=== PATIENT | male | born 1970 | race Caucasian/White ===

== ENCOUNTER 2016-10-25 07:28 | Inpatient (IN) | payer MEDICAID, OTHER ==
--- NOTE | 2016-10-25 07:54 | ED Physician Chart ---
Chief Complaint/HPI - Patient Information Date Seen:: 10/25/16 Time Seen:: 07:50 Chief Complaint:: ABDOMINAL PAIN History of Present Illness:: THIS A 46 YO MALE WHO STATES THAT THIS A M HE HAS A SUDDEN ONSET OF GENERALIZE ABDOMINAL PAIN NOT ASSOCIATED WITH NAUSEA AND VOMITING. HE STATES THAT HE HAS A HISTORY OF RENAL STONES AND GALLSTONES. HE DENIES PREVIOUS ABDOMINAL SURGERY. HE DENIES FEVER, COUGH AND CHEST PAIN. HE DENIES PAINFUL URINATION AND PENILE DISCHARGE. HE DENIES DIARRHEA AND CONSTIPATION. Allergies:: Allergies Allergy/AdvReac Type Severity Reaction Status Date / Time Penicillins [PCN] Allergy Verified 12/08/15 02:21 Vitals:: Vital Signs - 8 hr 10/25/16 07:41 Temp 98.1 F HR 92 RR 17 BP 139/79 O2 Sat % 100 Historian:: Patient Review:: Nurse's Note Reviewed, Old Chart Reviewed Review of Systems - Review of Systems General/Constitutional: No fever, No chills, No weight loss, No weakness, No diaphoresis, No edema, No loss of appetite Skin: No skin lesions, No rash, No bruising Head: No headache, No light-headedness Eyes: No loss of vision, No pain, No diplopia ENT: No earache, No nasal drainage, No sore throat, No tinnitus Neck: No neck pain, No swelling, No thyromegaly, No stiffness, No mass noted Cardio Vascular: No chest pain, No palpitations, No PND, No orthopnea, No edema Pulmonary: No SOB, No cough, No sputum, No wheezing GI: No nausea, No vomiting, No diarrhea, Pain, No melena, No hematochezia, No constipation, No hematemesis G/U: No dysuria, No frequency, No hematuria Musculoskeletal: No bone or joint pain, No back pain, No muscle pain Endocrine: No polyuria, No polydipsia Psychiatric: No prior psych history, No depression, No anxiety, No suicidal ideation Hematopoietic: No bruising, No lymphadenopathy Allergic/Immuno: No urticaria, No angioedema Neurological: No syncope, No focal symptoms, No weakness, No paresthesia, No headache, No seizure, No dizziness, No confusion, No vertigo Past Medical History - Past Medical History Obtainable: Yes Past Medical History: Renal stone Family History: None Social History: Smoker, Alcohol, Illicit Drug Use Surgical History: other (LEFT SHOULDER AND LEFT ANKLE SURGIES) Medication: Reviewed Family Medical History - Family Member Mother History Unknown: Yes Physical Exam - Physical Examination General/Constitutional: Awake, Well-developed, well-nourished, Alert, No distress, GCS 15, Non-toxic appearing, Ambulatory Head: Atraumatic Eyes: Lids, conjuctiva normal, PERRL, EOMI Skin: Nl inspection, No rash, No skin lesions, No ecchymosis, Well hydrated, No lymphadenopathy ENMT: External ears, nose nl, Nasal exam nl, Lips, teeth, gums nl Neck: Nontender, Full ROM w/o pain, No JVD, No nuchal rigidity, No bruit, No mass, No stridor Respiratory: Nl effort/Exclusion, Clear to Auscultation, No Wheeze/Rhonchi/Rales Cardio Vascular: RRR, No murmur, gallop, rubs, NL S1 S2 GI: No organomegaly, No hernia, Normal BS's, No mass/bruits, No McBurney tenderness Other GI comments:: ABDOMINAL TENDERNESS IS MINIMAL AND THERE SOME MILD DISTENTION. : No CVA tenderness Extremities: No tenderness or effusion, Full ROM, normal strength in all extremities, No edema, Normal digits & nails Neuro/Psych: Alert/oriented, DTR's symmetric, Normal sensory exam, Normal motor strength, Judgement/insight normal, Mood normal, Normal gait, No focal deficits Misc: normal gait, Normal back, No paraspinal tenderness Labs/Radiology/EKG Results - Lab Results Results: Abnormal Lab Results 10/25/16 10/25/16 10/25/16 07:30 07:30 08:00 WBC RBC Hgb Hct MCV MCH MCHC Differential RDW Plt Count MPV Neutrophils (Manual) Lymphocytes Monocytes Platelet Estimate Platelet Morphology RBC Morph Micro Appear PT 9.1 L INR 0.89 PTT (Actin FS) 26.8 Sodium Potassium Chloride Carbon Dioxide Anion Gap BUN Creatinine Est GFR ( Amer) Est GFR (Non-Af Amer) BUN/Creatinine Ratio Glucose Hemoglobin A1c % Whole Bld Lactic Acid Calcium Total Bilirubin AST ALT Alkaline Phosphatase Total Protein Albumin Globulin Albumin/Globulin Ratio Triglycerides Cholesterol LDL Cholesterol Direct HDL Cholesterol TSH Urine Source CLEAN C Urine Color YELLOW Urine Clarity SL. CLOUDY Urine pH 6.5 Ur Specific [place] 1.015 Urine Protein NEGATIVE Urine Glucose (UA) 250 H Urine Ketones TRACE Urine Blood NEGATIVE Urine Nitrate NEGATIVE Urine Bilirubin NEGATIVE Urine Urobilinogen 2.0 Ur Leukocyte Esterase NEGATIVE Urine RBC NONE SEEN Urine WBC 0-2 Ur Epithelial Cells RARE Urine Bacteria NONE SEEN Urine Opiates Screen NEGATIVE Urine Methadone Screen NEGATIVE Ur Barbiturates Screen NEGATIVE Ur Tricyclics Screen POSITIVE H Ur Phencyclidine Scrn NEGATIVE Amphetamines Screen NEGATIVE U Methamphetamines Scrn NEGATIVE U Benzodiazepines Scrn POSITIVE H U Cocaine Metab Screen NEGATIVE U Cannabinoids Screen NEGATIVE Ethyl Alcohol 10/25/16 10/25/16 10/25/16 08:00 08:00 08:00 WBC 3.9 L RBC 4.45 Hgb 12.5 L Hct 37.0 L D MCV 83.1 MCH 28.0 MCHC Differential 33.7 RDW 13.5 Plt Count 122 L MPV 8.2 Neutrophils (Manual) 80 Lymphocytes 16 L Monocytes 4 Platelet Estimate DECREASED PLATELETS Platelet Morphology NORMAL RBC Morph Micro Appear NORMAL PT INR PTT (Actin FS) Sodium 133 L Potassium 3.6 Chloride 103 Carbon Dioxide 22.6 Anion Gap 11.0 BUN 23 Creatinine 1.0 Est GFR ( Amer) > 60.0 Est GFR (Non-Af Amer) > 60.0 BUN/Creatinine Ratio 23.0 Glucose 187 H Hemoglobin A1c % Whole Bld Lactic Acid Calcium 9.3 Total Bilirubin 0.7 AST 22 ALT 26 Alkaline Phosphatase 54 Total Protein 7.5 Albumin 4.5 Globulin 3.0 Albumin/Globulin Ratio 1.5 Triglycerides 154 H Cholesterol 159 LDL Cholesterol Direct 122 HDL Cholesterol 33 TSH Urine Source Urine Color Urine Clarity Urine pH Ur Specific [place] Urine Protein Urine Glucose (UA) Urine Ketones Urine Blood Urine Nitrate Urine Bilirubin Urine Urobilinogen Ur Leukocyte Esterase Urine RBC Urine WBC Ur Epithelial Cells Urine Bacteria Urine Opiates Screen Urine Methadone Screen Ur Barbiturates Screen Ur Tricyclics Screen Ur Phencyclidine Scrn Amphetamines Screen U Methamphetamines Scrn U Benzodiazepines Scrn U Cocaine Metab Screen U Cannabinoids Screen Ethyl Alcohol 10/25/16 10/25/16 10/25/16 08:00 08:00 08:00 WBC RBC Hgb Hct MCV MCH MCHC Differential RDW Plt Count MPV Neutrophils (Manual) Lymphocytes Monocytes Platelet Estimate Platelet Morphology RBC Morph Micro Appear PT INR PTT (Actin FS) Sodium Potassium Chloride Carbon Dioxide Anion Gap BUN Creatinine Est GFR ( Amer) Est GFR (Non-Af Amer) BUN/Creatinine Ratio Glucose Hemoglobin A1c % 5.1 Whole Bld Lactic Acid Calcium Total Bilirubin AST ALT Alkaline Phosphatase Total Protein Albumin Globulin Albumin/Globulin Ratio Triglycerides Cholesterol LDL Cholesterol Direct HDL Cholesterol TSH 1.69 Urine Source Urine Color Urine Clarity Urine pH Ur Specific [place] Urine Protein Urine Glucose (UA) Urine Ketones Urine Blood Urine Nitrate Urine Bilirubin Urine Urobilinogen Ur Leukocyte Esterase Urine RBC Urine WBC Ur Epithelial Cells Urine Bacteria Urine Opiates Screen Urine Methadone Screen Ur Barbiturates Screen Ur Tricyclics Screen Ur Phencyclidine Scrn Amphetamines Screen U Methamphetamines Scrn U Benzodiazepines Scrn U Cocaine Metab Screen U Cannabinoids Screen Ethyl Alcohol < 10 10/25/16 08:50 WBC RBC Hgb Hct MCV MCH MCHC Differential RDW Plt Count MPV Neutrophils (Manual) Lymphocytes Monocytes Platelet Estimate Platelet Morphology RBC Morph Micro Appear PT INR PTT (Actin FS) Sodium Potassium Chloride Carbon Dioxide Anion Gap BUN Creatinine Est GFR ( Amer) Est GFR (Non-Af Amer) BUN/Creatinine Ratio Glucose Hemoglobin A1c % Whole Bld Lactic Acid 2.31 H* Calcium Total Bilirubin AST ALT Alkaline Phosphatase Total Protein Albumin Globulin Albumin/Globulin Ratio Triglycerides Cholesterol LDL Cholesterol Direct HDL Cholesterol TSH Urine Source Urine Color Urine Clarity Urine pH Ur Specific [place] Urine Protein Urine Glucose (UA) Urine Ketones Urine Blood Urine Nitrate Urine Bilirubin Urine Urobilinogen Ur Leukocyte Esterase Urine RBC Urine WBC Ur Epithelial Cells Urine Bacteria Urine Opiates Screen Urine Methadone Screen Ur Barbiturates Screen Ur Tricyclics Screen Ur Phencyclidine Scrn Amphetamines Screen U Methamphetamines Scrn U Benzodiazepines Scrn U Cocaine Metab Screen U Cannabinoids Screen Ethyl Alcohol - Radiology Results Results: CHEST X-RAY = NAD CT SCAN OF THE ABDOMEN = DISTENDED GALLBLADDER WITH GALLSTONES. MARKED SPLENOMEGALY DISTENDED STOMACH - EKG Interpretations EKG Time:: 08:07 Rate & Rhythm: 92 NORMAL SINUS [place]: RIGHT AXIS Assessment - Assessment General Assessment: THIS PATIENT HAS GALLBLADDER DISEASE AND A MARKED SPLENOMEGALY WITH A LOW PLATLET COUNT ASSOCIATED WITH SIGNIFICANT PAIN. IT WAS RECOMMENDED THAT HE BE ADMITTED TO THE HOSPITAL FOR A G.I. AND SURGICAL CONSULT TO EVALUATE AND TREAT HIS CONDITION. THE PATIENT REFUSED ADMISSION. THE PATIENT WAS ALSO TOLD THAT HE IS ACIDOTIC AND NEED THAT EVALUATE ALSO. I EXPLAINED THAT HE MIGHT IF HE LEAVES WITHOUT AN INVESTIGATION OF MULTIPLE CONDITIONS. ED Septic Shock - . Is Septic Shock (SBP<90, OR Lactate>4 mmol\L) present?: No - <6hrs of presentation: Vital Signs: Vital Signs - 8 hr 10/25/ 07:41 Temp 98.1 F HR 92 RR 17 BP 139/79 O2 Sat % 100 Reassessment (Disposition) - Reassessment Reassessment Condition:: Improved - Diagnosis Diagnosis:: CHOLELITHIASIS SPLENOMEGALY DISTENDED STOMACH - Aftercare/Follow up Instructions Aftercare/Follow-Up Instructions:: Counseled pt regarding lab results/diagnosis & need follow up, Refer to Discharge Instructions, Counseled pt & family regarding lab results/diagnosis & need follow up - Patient Disposition Discharge/Transfer:: Against Medical Advice (HE COULD NOT BE CONVINCED TO BE HOSPITALIZED) Condition at Disposition:: Improved ED Discharge Plan - Patient Disposition Admit/Discharge/Transfer: AGAINST MEDICAL ADVICE Condition at Disposition: Guarded
[2016-10-25 08:13] LABS: HEMOGLOBIN 12.5 gm/dL (13.2-17.3); MEAN CELL VOLUME 83.1 fl (80-99); MEAN CORPUSCULAR HGB CONC 33.7 pg (28.0-36.0); MEAN PLATELET VOLUME 8.2 fl; PLATELET COUNT 122 Th/cmm (150-400); RED BLOOD COUNT 4.45 Mil/cmm (4.30-5.70); RED CELL DISTRIBUTION WIDTH 13.5 % (11.5-20.0)
[2016-10-25 08:18] LABS: URINE COLOR YELLOW; URINE GLUCOSE (UA) 250 mg/dL (NEGATIVE)
[2016-10-25 08:19] LABS: URINE BILIRUBIN NEGATIVE (NEGATIVE); URINE BLOOD NEGATIVE (NEGATIVE); URINE KETONE TRACE mg/dL (NEGATIVE); URINE PH 6.5; URINE PROTEIN NEGATIVE (NEGATIVE)
[2016-10-25 08:20] LABS: INR 0.89 (0.5-1.4); PROTHROMBIN TIME (TEST) 9.1 SECONDS (9.5-11.5)
[2016-10-25 08:24] LABS: WHITE BLOOD COUNT 3.9 Th/cmm (4.8-10.8)
[2016-10-25 08:25] LABS: ALB/GLOB RATIO 1.5 (1.0-1.8); ALKALINE PHOSPHATASE 54 U/L (34-104); BILIRUBIN,TOTAL 0.7 mg/dL (0.3-1.0); BUN - UREA NITROGEN 23 mg/dL (7-25); CALCIUM SERUM 9.3 mg/dL (8.6-10.3); CARBON DIOXIDE 22.6 mEq/L (21.0-31.0); CHLORIDE 103 mEq/L (98-107); GLUCOSE 187 mg/dL (70-105); POTASSIUM SERUM 3.6 mEq/L (3.5-5.1); SGOT 22 U/L (13-39); SGPT/ALT 26 U/L (7-52); SODIUM SERUM 133 mEq/L (136-145)
[2016-10-25 08:26] LABS: CHOLESTEROL 159 mg/dL (<200); TRIGLYCERIDES 154 mg/dL (<150)
[2016-10-25 08:39] LABS: URINE BACTERIA NONE SEEN /hpf (NONE SEEN); URINE EPITHELIAL CELLS RARE /lpf (FEW); URINE RBC NONE SEEN /hpf (0-5); URINE WBC 0-2 /hpf (0-5)
[2016-10-25 08:43] LABS: AMPHETAMINE URINE NEGATIVE (NEGATIVE); BARBITURATES URINE NEGATIVE (NEGATIVE); METHADONE URINE NEGATIVE (NEGATIVE)
[2016-10-25] MEDS ORDERED: IOHEXOL 300MG/ML 100 ML VIAL IVP ONE (08:43)
[2016-10-25] MEDS ORDERED: Sodium Chloride 0.9% 1,000 ML IV ONE (08:43)
[2016-10-25 09:13] LABS: NEUTROPHILS 80 % (40-80); PLATELET ESTIMATE DECREASED PLATELETS (NORMAL); TOTAL CELLS COUNTED 100
[2016-10-25 09:14] LABS: PLATELET MORPHOLOGY NORMAL (NORMAL)
--- NOTE | 2016-10-25 10:00 | Diagnostic Imaging Report ---
Portable chest x-ray HISTORY: Pain The heart size is difficult to assess with portable technique in a poor inspiration. Elevation of the right hemidiaphragm. No acute focal pulmonary processes. No hilar or mediastinal abnormalities. IMPRESSION: No acute pulmonary processes
--- NOTE | 2016-10-25 10:05 | Diagnostic Imaging Report ---
CT scan abdomen and pelvis with intravenous contrast HISTORY: Pain, abdominal distention Total DLP equals 661 CTDI equals 12.0 Axial sections were obtained from the xiphoid process down to the pubic symphysis. The liver exhibits a homogeneous parenchyma. No focal lesions. There is marked splenomegaly. There is a dilated gallbladder with intraluminal calcifications consistent with cholelithiasis. There is a fluid-filled dilated stomach. No significant bowel dilatation. No focal abnormality seen within the pancreas. No significant focal renal lesions. No hydronephrosis. The exam of the pelvis demonstrates preservation of normal fat planes. No abnormal soft tissue masses or abnormal fluid collections prostatic calcifications noted. IMPRESSION: 1. Dilated gallbladder with evidence of cholelithiasis 2. Marked splenomegaly 3. Distended fluid-filled stomach. Significance should be correlated clinically.
[2016-10-25] MEDS ORDERED: HYDROmorphone 1 mg/mL 1mL Syr IVP STA (10:12)
[2016-10-25] MEDS ORDERED: HYDROmorphone 1 mg/mL 1mL Syr ONE (10:13)
[2016-10-25] MEDS ORDERED: Diatrizoate Meglumine/Diatri 30 mL Sol PO ONE (14:14)
--- NOTE | 2016-10-25 14:53 | Diagnostic Imaging Report ---
Upper GI exam, limited History: Abdominal pain, distended stomach Comparison: CT abdomen and pelvis on 10/25/2016 Technique/procedure: [employer] view demonstrates a nonspecific bowel gas pattern. Excreted contrast from previous exam is seen in the urinary bladder. There is normal transit of contrast from the esophagus to the stomach. No evidence of a hiatal hernia. The gastric rugal folds are within normal limits. There may be gastroesophageal reflux. Limited assessment for focal lesions demonstrate obvious focal mass lesions. There is a new ventral transit of contrast into the small bowel without evidence of obstruction. IMPRESSION: Mildly distended stomach, nonspecific. There is passage of contrast seen from the stomach into the small bowel. No evidence of a hiatal hernia. Questionable Gastroesophageal reflux, please correlate with clinical findings.
[2016-10-25 18:55] VITALS: BP 142/80
--- NOTE | 2016-10-25 21:22 | Consultation ---
DATE OF CONSULTATION: 10/25/2016 INPATIENT GASTROINTESTINAL CONSULTATION REFERRING PHYSICIAN: Dr. Lowery. REASON FOR CONSULTATION: Upper abdominal pain. HISTORY OF PRESENT ILLNESS: This is a 46-year-old male, who developed upper abdominal pain; therefore came to the hospital, had nausea, but no vomiting. Denies having any diarrhea, melena, hematochezia, hematemesis, or coffee-ground emesis. PAST MEDICAL HISTORY: None. PAST SURGICAL HISTORY: Hernia repair. FAMILY HISTORY: Noncontributory. SOCIAL HISTORY: Drinks alcohol, but not heavy, does use methamphetamines. ALLERGIES: PENICILLIN. CURRENT MEDICATIONS: Normal saline. REVIEW OF SYSTEMS: A 10-point review of systems was performed and the pertinent positive was abdominal pain. All other systems were otherwise negative. PHYSICAL EXAMINATION: VITAL SIGNS: Temperature 98, breathing 16, pulse of 102, blood pressure 120/87, satting 99%. GENERAL: In no apparent distress. EYES: Anicteric, normal conjunctivae. HEENT: Normocephalic, atraumatic. Moist mucous membranes. NECK: Soft, supple. CHEST: Clear. effort. CARDIOVASCULAR: Regular rate and rhythm. ABDOMEN: Soft, nontender, nondistended, normal bowel sounds. SKIN: Warm, dry. EXTREMITIES: Reveal no cyanosis. PSYCHOLOGIC: Alert and oriented x 3. LABORATORY DATA: Show white count 3.9, hemoglobin 12.5, platelets of 122. INR is 0.89, total bilirubin 0.7, AST 22, ALT 26, alkaline phosphatase 54. Alcohol level was negative. CT abdomen and pelvis showed gallstones and a distended stomach. IMPRESSION: A 46-year-old male with gallstones, abdominal pain, cause could be symptomatic gallstone and may have cholecystitis. HIDA scan can be done. LFTs are normal. Endoscopy can also be done for the distended stomach. This was offered to the patient, but he declined. He wanted an alternative, which would be an upper GI series. PLAN: 1. Check an upper GI series. 2. Check a lipase level. 3. Check a HIDA scan. Thank you for allowing me to participate. Please call me if any questions. JOB# [id number]
--- NOTE | 2016-10-25 23:47 | Admit Criteria Form ---
Admit Criteria Forms - Admit Criteria Diagnosis: ABDOMINAL PAIN Clinical Indications for Admission to Inpatient Care (Place 'X' for any and all applicable criteria): Admission is indicated for ANY ONE of the following(1)(2)(3)(4)(5): [X ]I. Inpatient admission required rather than observation care (Also use Abdominal Pain: Observation Care, as appropriate) because of ANY ONE of the following: [ ]a) Severe pain requiring acute inpatient management [X ]b) Identification of etiology/finding that requires inpatient care (eg, aortic dissection, free air) [ ]c) Absent bowel sounds with complete ileus(6) [ ]d) Suspected toxic megacolon [ ]e) Severe electrolyte abnormalities requiring inpatient care [ ]f) High fever or infection requiring inpatient admission as indicated by ANY ONE of following(7)(8): [ ] i) Appropriate outpatient or observational care antimicrobial treatment unavailable, not effective, or not feasible [ ] ii) Documented bacteremia [ ] iii) Temperature > 104.9 degrees F (oral) [ ] iv) T >103.1 F (oral) or < 96.8 F(rectal) that does not respond to all emergency treatment measures [ ]g) Signs of intestinal obstruction [B] [ ]h) Hemodynamic instability [ ]i) IV fluid to replace significant ongoing losses (greater than 3 L/m2 per day) (12)(13) [ ]j) Percutaneous or open drainage (eg, abscess, biliary tract ) procedures [ ]k) Parenteral nutrition regimen that must be implemented on inpatient basis [X ]l) Other condition,treatment or monitoring requiring inpatient admission. [ ]II. Peritoneal signs present [ ]III. Surgery needed that cannot be performed on an ambulatory basis. [ ]IV. Evaluation requires patient to not eat or drink for extended period ( eg, more than 24 hours). [ ]V. Contraindications and/or Inappropriate clinical situations for Observational Care in patients with abdominal pain, when ANY ONE of the following is required: [ ]a) Thorough evaluation is required to prevent catastrophic events due to delays in diagnosing (e.g.Mesenteric ischemia) 1,3 [ ]b) Patient with severe pathology or with chronic symptoms unlikely to improve in the ED stay (3) [ ]. General contraindications and/or Inappropriate clinical situations for Observational Care in patients with abdominal pain, when ANY ONE of the following is required: [ ]a) Prediction of prolongation of LOS based on ANY ONE of the following may be considered as a contraindication for observational care 2, 3, 4, 5, 6, 7, 8, 9, 10, 11 [ ]i) Age > 65 yrs. [ ]ii) Patient arriving by ambulance [ ]iii) Patient with high acuity [ ]iv) Patient requiring vital sign monitoring [ ]v) Patient on IV medication [ ]b) Systolic blood pressures 180mmHg 3,12 [ ]c) Patient with altered mental status including delirium and other alteration of consciousness, (3) [ ]d) Patient whose discharge disposition will be to a usp home or rehabilitation home should not be managed in Emergency Department Observation Unit. CMS rule requires 3 days hospital stay before such placement.3,13 [ ]e) Patient with failure to thrive due to broad array of etiologies 3,16,17 [ ]f) Inability to ambulate 3,14 Extended stay beyond goal length of stay may be needed for(2)(3): [ ]a) Persistent abdominal pain with suspected intra-abdominal process [ ]b) Diagnosed condition requiring continued stay (e.g., pancreatitis, complicated diverticulitis) [ ]c) Surgery (e.g., colectomy) The original [employer] content created by [employer] has been revised. The portions of the content which have been revised are identified through the use of italic text or in bold, and [facility] has neither reviewed nor approved the modified material.All other unmodified content is copyright [facility]. Please see references footnoted in the original [facility] edition 2016 Admit Criteria Met?: Yes
--- NOTE | 2016-10-26 07:49 | History and Physical ---
History of Present Illness - HPI Chief Complaint: 46 y/o male who presents to [facility] ER with RUQ abdominal pain. Denies any nausea or vomiting. States that he had decrease appetite. He denies any previous abdominal surgery. admits to a history of renal stones and gallstones. Denies fever, cough, congestion and chest pain. Denies dysuria or penile discharge. denies diarrhea and constipation. While in the ER patient CT abd/pelvis. Please see dictated report. HPI: 46 y/o male who presents to [facility] ER with RUQ abdominal pain. Denies any nausea or vomiting. States that he had decrease appetite. He denies any previous abdominal surgery. admits to a history of renal stones and gallstones. Denies fever, cough, congestion and chest pain. Denies dysuria or penile discharge. denies diarrhea and constipation. While in the ER patient CT abd/pelvis. Please see dictated report. 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 Denies: Constipation, GERD Psych: Report: No Pertinent Hx Musculoskeletal: Report: No Pertinent Hx Rheumatologic: Report: No pertinent Hx Infectious Disease: Report: No Pertinent Hx Renal/: Report: Other (history of renal stones). Denies: UTI, Urinary Incontinence, Hematuria Endocrine: Report: No Pertinent Hx Dermatology: Report: No Pertinent Hx - Past Surgical History Past Surgical History: No pertinent Hx Family Medical History - Family Member Mother History Unknown: Yes Social History Smoke: No Alcohol: None Drugs: Crystal Meth Lives: Alone - Medications Home Medications: Home Medication Medication Instructions Recorded Type QUEtiapine Fumarate [SEROquel] 400 mg PO DAILY 10/25/16 History alprazOLAM [Xanax*] 0.5 mg PO DAILY 10/25/16 History - Allergies Allergies/Adverse Reactions: Allergies Allergy/AdvReac Type Severity Reaction Status Date / Time Penicillins [PCN] Allergy Verified 12/08/15 02:21 Review of Systems - Review of Systems Constitutional: Report: No Significant Eyes: Report: No Significant ENT: Report: No Significant Respiratory: Denies: Cough, SOB with Excertion, Wheezing Cardiovascular: Denies: Chest Pain Gastrointestinal: Report: Abdominal Pain. Denies: Nausea, Vomiting, Diarrhea, Constipation Genitourinary: Denies: Dysuria, Incontinence, Hematuria Musculoskeletal: Report: No Significant Skin: Report: No Significant Neurological: Report: No Significant Physical Exam - Physical Exam HEENT: Report: Ears Nose Throat within normal limits, Pharnyx within normal limits Neck: Report: Within normal limits Cardiovascular Systems: Report: Regular, Rate and Rhythm Respiratory: Report: Breath Sounds are within normal limits, Clear to Auscultation of lung olivera Abdomen: Report: Tender to palpation Back: Report: Inspection of back is within normal limits. Extremities: Report: Non-tender to palpation. Skin: Report: Color of skin is within normal limits Neuro/Psych: Report: Mood affect is within normal limits, A+Ox3 - Lab Results All Lab Results last 24 hours: Laboratory Last Values WBC 3.9 Th/cmm (4.8-10.8) L 10/25/16 08:00 RBC 4.45 Mil/cmm (4.30-5.70) 10/25/16 08:00 Hgb 12.5 gm/dL (13.2-17.3) L 10/25/16 08:00 Hct 37.0 % (39.0-49.0) L D 10/25/16 08:00 MCV 83.1 fl (80-99) 10/25/16 08:00 MCH 28.0 pg (26.0-30.0) 10/25/16 08:00 MCHC Differential 33.7 pg (28.0-36.0) 10/25/16 08:00 RDW 13.5 % (11.5-20.0) 10/25/16 08:00 Plt Count 122 Th/cmm (150-400) L 10/25/16 08:00 MPV 8.2 fl 10/25/16 08:00 Neutrophils (Manual) 80 % (40-80) 10/25/16 08:00 Lymphocytes 16 % (20-50) L 10/25/16 08:00 Monocytes 4 % (2-10) 10/25/16 08:00 Platelet Estimate DECREASED PLATELETS (NORMAL) 10/25/16 08:00 Platelet Morphology NORMAL (NORMAL) 10/25/16 08:00 RBC Morph Micro Appear NORMAL (NORMAL) 10/25/16 08:00 PT 9.1 SECONDS (9.5-11.5) L 10/25/16 08:00 INR 0.89 (0.5-1.4) 10/25/16 08:00 PTT (Actin FS) 26.8 SECONDS (26.0-38.0) 10/25/16 08:00 Sodium 133 mEq/L (136-145) L 10/25/16 08:00 Potassium 3.6 mEq/L (3.5-5.1) 10/25/16 08:00 Chloride 103 mEq/L (98-107) 10/25/16 08:00 Carbon Dioxide 22.6 mEq/L (21.0-31.0) 10/25/16 08:00 Anion Gap 11.0 (7.0-16.0) 10/25/16 08:00 BUN 23 mg/dL (7-25) 10/25/16 08:00 Creatinine 1.0 mg/dL (0.7-1.3) 10/25/16 08:00 Est GFR ( Amer) > 60.0 ml/min (>90) 10/25/16 08:00 Est GFR (Non-Af Amer) > 60.0 ml/min 10/25/16 08:00 BUN/Creatinine Ratio 23.0 10/25/16 08:00 Glucose 187 mg/dL (70-105) H 10/25/16 08:00 Hemoglobin A1c % 5.1 % (4.0-6.0) 10/25/16 08:00 Whole Bld Lactic Acid 1.79 mmol/L (0.60-1.99) 10/25/16 11:52 Calcium 9.3 mg/dL (8.6-10.3) 10/25/16 08:00 Total Bilirubin 0.7 mg/dL (0.3-1.0) 10/25/16 08:00 AST 22 U/L (13-39) 10/25/16 08:00 ALT 26 U/L (7-52) 10/25/16 08:00 Alkaline Phosphatase 54 U/L (34-104) 10/25/16 08:00 Total Protein 7.5 gm/dL (6.0-8.3) 10/25/16 08:00 Albumin 4.5 gm/dL (4.2-5.5) 10/25/16 08:00 Globulin 3.0 gm/dL 10/25/16 08:00 Albumin/Globulin Ratio 1.5 (1.0-1.8) 10/25/16 08:00 Triglycerides 154 mg/dL (<150) H 10/25/16 08:00 Cholesterol 159 mg/dL (<200) 10/25/16 08:00 LDL Cholesterol Direct 122 mg/dL (75-193) 10/25/16 08:00 HDL Cholesterol 33 mg/dL (23-92) 10/25/16 08:00 Lipase 17 U/L (11-82) 10/25/16 08:00 TSH 1.69 uIU/ml (0.34-5.60) 10/25/16 08:00 Urine Source CLEAN C 10/25/16 07:30 Urine Color YELLOW 10/25/16 07:30 Urine Clarity SL. CLOUDY (CLEAR) 10/25/16 07:30 Urine pH 6.5 10/25/16 07:30 Ur Specific [place] 1.015 (1.005-1.030) 10/25/16 07:30 Urine Protein NEGATIVE mg/dL (NEGATIVE) 10/25/16 07:30 Urine Glucose (UA) 250 mg/dL (NEGATIVE) H 10/25/16 07:30 Urine Ketones TRACE mg/dL (NEGATIVE) 10/25/16 07:30 Urine Blood NEGATIVE (NEGATIVE) 10/25/16 07:30 Urine Nitrate NEGATIVE (NEGATIVE) 10/25/16 07:30 Urine Bilirubin NEGATIVE (NEGATIVE) 10/25/16 07:30 Urine Urobilinogen 2.0 E.U./dL (0.2 - 1.0) 10/25/16 07:30 Ur Leukocyte Esterase NEGATIVE (NEGATIVE) 10/25/16 07:30 Urine RBC NONE SEEN /hpf (0-5) 10/25/16 07:30 Urine WBC 0-2 /hpf (0-5) 10/25/16 07:30 Ur Epithelial Cells RARE /lpf (FEW) 10/25/16 07:30 Urine Bacteria NONE SEEN /hpf (NONE SEEN) 10/25/16 07:30 Urine Opiates Screen NEGATIVE (NEGATIVE) 10/25/16 07:30 Urine Methadone Screen NEGATIVE (NEGATIVE) 10/25/16 07:30 Ur Barbiturates Screen NEGATIVE (NEGATIVE) 10/25/16 07:30 Ur Tricyclics Screen POSITIVE (NEGATIVE) H 10/25/16 07:30 Ur Phencyclidine Scrn NEGATIVE (NEGATIVE) 10/25/16 07:30 Amphetamines Screen NEGATIVE (NEGATIVE) 10/25/16 07:30 U Methamphetamines Scrn NEGATIVE (NEGATIVE) 10/25/16 07:30 U Benzodiazepines Scrn POSITIVE (NEGATIVE) H 10/25/16 07:30 U Cocaine Metab Screen NEGATIVE (NEGATIVE) 10/25/16 07:30 U Cannabinoids Screen NEGATIVE (NEGATIVE) 10/25/16 07:30 Ethyl Alcohol < 10 mg/dL (0-10) 10/25/16 08:00 RPR NONREACTIVE (NONREACTIVE) 10/25/16 08:00 - Assessment Assessment: Current Active Problems Problem Status Onset GENERALIZED ABDOMINAL PAIN Acute RUQ abdominal pain cholelithiasis distended spleen low platelets history of IV drug use splenomegaly - Plan Plan: Will keep patient NPO, continue IV fluids, for HIDA scan today, GI consult.
--- NOTE | 2016-10-26 10:57 | Diagnostic Imaging Report ---
Radionuclide biliary scan for this HIDA scan) HISTORY: Cholelithiasis, pain 5.0 mCi technetium labeled biliary age and was using the exam. There is normal hepatic uptake and clearance. There is excretion of nuclide in the common bile duct and small bowel. No gallbladder activity seen through 2 hours. IMPRESSION: 1. Nonvisualization of the gallbladder. Findings consistent with cystic duct obstruction. Clinical correlation needed.
[2016-10-26] MEDS: Levofloxacin 500mg/100mL 500 MG/100 ML BAG IV SCH (17:36)
--- NOTE | 2016-10-26 18:45 | General Progress Note ---
Subjective - Review of Systems Service Date: 10/26/16 Events since last encounter: known GB stones for 3 years HiDA - nonvisualization CT gb stones, MARKED SPLENOMEGALY ADMITS TO AMPHETAMINES, DENIES ALCOHOL PE non tender RUQ, large umbilical hernia suggest: Hematology eval for splenomegaly Objective - Results Result Diagrams: 10/25/16 08:00 10/25/16 08:00 Recent Labs: Laboratory Last Values WBC 3.9 Th/cmm (4.8-10.8) L 10/25/16 08:00 RBC 4.45 Mil/cmm (4.30-5.70) 10/25/16 08:00 Hgb 12.5 gm/dL (13.2-17.3) L 10/25/16 08:00 Hct 37.0 % (39.0-49.0) L D 10/25/16 08:00 MCV 83.1 fl (80-99) 10/25/16 08:00 MCH 28.0 pg (26.0-30.0) 10/25/16 08:00 MCHC Differential 33.7 pg (28.0-36.0) 10/25/16 08:00 RDW 13.5 % (11.5-20.0) 10/25/16 08:00 Plt Count 122 Th/cmm (150-400) L 10/25/16 08:00 MPV 8.2 fl 10/25/16 08:00 Neutrophils (Manual) 80 % (40-80) 10/25/16 08:00 Lymphocytes 16 % (20-50) L 10/25/16 08:00 Monocytes 4 % (2-10) 10/25/16 08:00 Platelet Estimate DECREASED PLATELETS (NORMAL) 10/25/16 08:00 Platelet Morphology NORMAL (NORMAL) 10/25/16 08:00 RBC Morph Micro Appear NORMAL (NORMAL) 10/25/16 08:00 PT 9.1 SECONDS (9.5-11.5) L 10/25/16 08:00 INR 0.89 (0.5-1.4) 10/25/16 08:00 PTT (Actin FS) 26.8 SECONDS (26.0-38.0) 10/25/16 08:00 Sodium 133 mEq/L (136-145) L 10/25/16 08:00 Potassium 3.6 mEq/L (3.5-5.1) 10/25/16 08:00 Chloride 103 mEq/L (98-107) 10/25/16 08:00 Carbon Dioxide 22.6 mEq/L (21.0-31.0) 10/25/16 08:00 Anion Gap 11.0 (7.0-16.0) 10/25/16 08:00 BUN 23 mg/dL (7-25) 10/25/16 08:00 Creatinine 1.0 mg/dL (0.7-1.3) 10/25/16 08:00 Est GFR ( Amer) > 60.0 ml/min (>90) 10/25/16 08:00 Est GFR (Non-Af Amer) > 60.0 ml/min 10/25/16 08:00 BUN/Creatinine Ratio 23.0 10/25/16 08:00 Glucose 187 mg/dL (70-105) H 10/25/16 08:00 Hemoglobin A1c % 5.1 % (4.0-6.0) 10/25/16 08:00 Whole Bld Lactic Acid 1.79 mmol/L (0.60-1.99) 10/25/16 11:52 Calcium 9.3 mg/dL (8.6-10.3) 10/25/16 08:00 Total Bilirubin 0.7 mg/dL (0.3-1.0) 10/25/16 08:00 AST 22 U/L (13-39) 10/25/16 08:00 ALT 26 U/L (7-52) 10/25/16 08:00 Alkaline Phosphatase 54 U/L (34-104) 10/25/16 08:00 Total Protein 7.5 gm/dL (6.0-8.3) 10/25/16 08:00 Albumin 4.5 gm/dL (4.2-5.5) 10/25/16 08:00 Globulin 3.0 gm/dL 10/25/16 08:00 Albumin/Globulin Ratio 1.5 (1.0-1.8) 10/25/16 08:00 Triglycerides 154 mg/dL (<150) H 10/25/16 08:00 Cholesterol 159 mg/dL (<200) 10/25/16 08:00 LDL Cholesterol Direct 122 mg/dL (75-193) 10/25/16 08:00 HDL Cholesterol 33 mg/dL (23-92) 10/25/16 08:00 Lipase 17 U/L (11-82) 10/25/16 08:00 TSH 1.69 uIU/ml (0.34-5.60) 10/25/16 08:00 Urine Source CLEAN C 10/25/16 07:30 Urine Color YELLOW 10/25/16 07:30 Urine Clarity SL. CLOUDY (CLEAR) 10/25/16 07:30 Urine pH 6.5 10/25/16 07:30 Ur Specific [place] 1.015 (1.005-1.030) 10/25/16 07:30 Urine Protein NEGATIVE mg/dL (NEGATIVE) 10/25/16 07:30 Urine Glucose (UA) 250 mg/dL (NEGATIVE) H 10/25/16 07:30 Urine Ketones TRACE mg/dL (NEGATIVE) 10/25/16 07:30 Urine Blood NEGATIVE (NEGATIVE) 10/25/16 07:30 Urine Nitrate NEGATIVE (NEGATIVE) 10/25/16 07:30 Urine Bilirubin NEGATIVE (NEGATIVE) 10/25/16 07:30 Urine Urobilinogen 2.0 E.U./dL (0.2 - 1.0) 10/25/16 07:30 Ur Leukocyte Esterase NEGATIVE (NEGATIVE) 10/25/16 07:30 Urine RBC NONE SEEN /hpf (0-5) 10/25/16 07:30 Urine WBC 0-2 /hpf (0-5) 10/25/16 07:30 Ur Epithelial Cells RARE /lpf (FEW) 10/25/16 07:30 Urine Bacteria NONE SEEN /hpf (NONE SEEN) 10/25/16 07:30 Urine Opiates Screen NEGATIVE (NEGATIVE) 10/25/16 07:30 Urine Methadone Screen NEGATIVE (NEGATIVE) 10/25/16 07:30 Ur Barbiturates Screen NEGATIVE (NEGATIVE) 10/25/16 07:30 Ur Tricyclics Screen POSITIVE (NEGATIVE) H 10/25/16 07:30 Ur Phencyclidine Scrn NEGATIVE (NEGATIVE) 10/25/16 07:30 Amphetamines Screen NEGATIVE (NEGATIVE) 10/25/16 07:30 U Methamphetamines Scrn NEGATIVE (NEGATIVE) 10/25/16 07:30 U Benzodiazepines Scrn POSITIVE (NEGATIVE) H 10/25/16 07:30 U Cocaine Metab Screen NEGATIVE (NEGATIVE) 10/25/16 07:30 U Cannabinoids Screen NEGATIVE (NEGATIVE) 10/25/16 07:30 Ethyl Alcohol < 10 mg/dL (0-10) 10/25/16 08:00 RPR NONREACTIVE (NONREACTIVE) 10/25/16 08:00 - Physical Exam Vitals and I&O: Vital Signs Temp 100.4 F 10/26/16 12:00 Pulse 98 10/26/16 12:00 Resp 18 10/26/16 12:00 BP 111/74 10/26/16 12:00 Pulse Ox 95 10/26/16 04:00 Intake & Output 10/25/16 10/26/16 10/26/16 18:59 06:59 18:59 Output Total 300 500 Balance -300 -500 Weight (lbs) 102.058 kg 106.8 kg 102.648 kg Output: Urine 300 500 Other: # Bowel Movements 1 Active Medications: Current Medications Alprazolam (Xanax) 0.5 mg PO DAILY SEEMA PRN Reason: Protocol Stop: 12/25/16 08:59 Levofloxacin (Levaquin Pb) 500 mg in 100 mls @ 100 mls/hr IV Q24HR SEEMA Stop: 12/25/16 16:59 Last Admin: 10/26/16 17:36 Dose: 100 mls/hr Metronidazole (Flagyl) 500 mg in 100 mls @ 100 mls/hr IV Q8HR SEEMA Stop: 12/25/16 20:59 Quetiapine Fumarate (Seroquel) 400 mg PO DAILY SEEMA PRN Reason: Protocol Stop: 12/25/16 08:59 Assessment/Plan - Problem List Patient Problems: All Active Problems GENERALIZED ABDOMINAL PAIN (Acute) Nutritional Asmnt/Malnutr-PDOC - Dietary Evaluation Malnutrition Findings (Please click <Entered> for more info): Nutritional Asmnt/Malnutrition Start: 10/26/16 14: 31 Text: Status: Complete Freq: Document 10/26/16 14:31 GSUN (Rec: 10/26/16 14:41 GSUN [email or web address]) Nutritional Asmnt/Malnutrition Patient General Information Nutritional Screening Consult Diagnosis RUQ abdominal pain, cholelithiasis, distended speen Pertinent Medical Hx/Surgical Hx RUQ abdominal pain, hx IV drug use Subjective Information [address] consult for BG >180, no hx of DM noted . 10/26 HIDA scan: cystic duct obstruction. Pt seen sitting in chair next to bed, ambulates, pleasant. Pt stated he is no longer in pain, wound like to be discharged, hungry. Pt has been NPO since adm. Pt stated usually very good appetite, denied nutritional concerns. CBW 226. 3lb with pt off and bedscale properly calibrated. Pt appears nourished and overweight. Current Diet Order/ Nutrition Support NPO Pertinent Medications Flagyl, Seroquel Pertinent Labs 10/25: glucose 187H on adm, A1c 5.1, triglycerides 154H Nutritional Hx/Data Height 1.75 m Height (Calculated Centimeters) 175.3 Current Weight (lbs) 102.648 kg Weight (Calculated Kilograms) 102.6 Weight (Calculated Grams) 962106.0 Christine Body Weight 160 Weight Status Obese GI Symptoms Food Allergies No Skin Integrity/Comment: Jose Eduardo Segura. 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 Estimated Nutritional Goals BEE in Kcals: Adj wt of IBW Calories/Kcals/Kg AdjBW 176.6lb/80.2kg Kcals Calculated 2004-2408kcal (25-30kcal/kg) Protein: Adj wt of IBW Protein Calculated 64-80g (0.8-1g/kg) Fluid: ml 2004-2408ml (1ml/kcal) Nutritional Problem 1. Problem Problem Inadequate oral food beverage intake related to Etiology GI function, HIDA scan: cystic duct obstruction aeb Signs/Symptoms: NPO since adm Intervention/Recommendation Comments 1. When medically feasible to resume oral diet, recommend regular diet. Expected Outcomes/Goals Expected Outcomes/Goals 1. PO intake to meet at least 75% of estimated nutritional needs.
[2016-10-26] MEDS: metroNIDAZOLE 500mg/NS 100mL 500 MG/100 ML BAG IV SCH (21:10)
--- NOTE | 2016-10-27 04:44 | Consultation ---
DATE OF CONSULTATION: 10/25/2016 REFERRING PHYSICIAN: Dr. Lowery. REASON FOR CONSULTATION: Gallstones. Thank you for referring this patient to me. HISTORY OF PRESENT ILLNESS: This is a 46-year-old male with a long history of known gallstones. This was first diagnosed about 3 years ago. He had also been diagnosed with kidney stones and this he passed spontaneously. He has visited this facility a few times in the past with the same complaint. On this admission, the CT scan showed multiple gallstones and marked splenomegaly. There is no mention of cirrhosis of the liver. This likely can be seen best on ultrasound. The patient had a HIDA scan which showed nonvisualization of the gallbladder. He admits to methamphetamine intake. Denies any hard drugs and denies any history of alcohol intake that might cause cirrhosis of the liver. PHYSICAL EXAMINATION: Unremarkable for pain and tenderness except for an umbilical hernia which is nontender. RECOMMENDATIONS: In view of the unexplained splenomegaly and likely cirrhosis of the liver, we will obtain hematology evaluation. The patient will likely need laparoscopic cholecystectomy, but in view of the splenomegaly, complications of bleeding on insufflation with CO2 is a possibility and therefore will need clearance from hematology prior to any surgery. JOB# [id number]
[2016-10-27] MEDS: metroNIDAZOLE 500mg/NS 100mL 500 MG/100 ML BAG IV SCH ×3 (05:13→20:48)
--- NOTE | 2016-10-27 08:02 | General Progress Note ---
Subjective - Review of Systems Service Date: 10/27/16 Subjective: Patient resting comfortable in bed. Patient to be evaluated for splenomegaly by Hem/Onc. Patient for cardiac clearance with cardiology. Patient denies any nausea or vomiting or abdominal pain. currently on clear liquid diet and IV antibiotic therapy. Objective - Results Result Diagrams: 10/25/16 08:00 10/25/16 08:00 Recent Labs: Laboratory Last Values WBC 3.9 Th/cmm (4.8-10.8) L 10/25/16 08:00 RBC 4.45 Mil/cmm (4.30-5.70) 10/25/16 08:00 Hgb 12.5 gm/dL (13.2-17.3) L 10/25/16 08:00 Hct 37.0 % (39.0-49.0) L D 10/25/16 08:00 MCV 83.1 fl (80-99) 10/25/16 08:00 MCH 28.0 pg (26.0-30.0) 10/25/16 08:00 MCHC Differential 33.7 pg (28.0-36.0) 10/25/16 08:00 RDW 13.5 % (11.5-20.0) 10/25/16 08:00 Plt Count 122 Th/cmm (150-400) L 10/25/16 08:00 MPV 8.2 fl 10/25/16 08:00 Neutrophils (Manual) 80 % (40-80) 10/25/16 08:00 Lymphocytes 16 % (20-50) L 10/25/16 08:00 Monocytes 4 % (2-10) 10/25/16 08:00 Platelet Estimate DECREASED PLATELETS (NORMAL) 10/25/16 08:00 Platelet Morphology NORMAL (NORMAL) 10/25/16 08:00 RBC Morph Micro Appear NORMAL (NORMAL) 10/25/16 08:00 PT 9.1 SECONDS (9.5-11.5) L 10/25/16 08:00 INR 0.89 (0.5-1.4) 10/25/16 08:00 PTT (Actin FS) 26.8 SECONDS (26.0-38.0) 10/25/16 08:00 Sodium 133 mEq/L (136-145) L 10/25/16 08:00 Potassium 3.6 mEq/L (3.5-5.1) 10/25/16 08:00 Chloride 103 mEq/L (98-107) 10/25/16 08:00 Carbon Dioxide 22.6 mEq/L (21.0-31.0) 10/25/16 08:00 Anion Gap 11.0 (7.0-16.0) 10/25/16 08:00 BUN 23 mg/dL (7-25) 10/25/16 08:00 Creatinine 1.0 mg/dL (0.7-1.3) 10/25/16 08:00 Est GFR ( Amer) > 60.0 ml/min (>90) 10/25/16 08:00 Est GFR (Non-Af Amer) > 60.0 ml/min 10/25/16 08:00 BUN/Creatinine Ratio 23.0 10/25/16 08:00 Glucose 187 mg/dL (70-105) H 10/25/16 08:00 Hemoglobin A1c % 5.1 % (4.0-6.0) 10/25/16 08:00 Whole Bld Lactic Acid 1.79 mmol/L (0.60-1.99) 10/25/16 11:52 Calcium 9.3 mg/dL (8.6-10.3) 10/25/16 08:00 Total Bilirubin 0.7 mg/dL (0.3-1.0) 10/25/16 08:00 AST 22 U/L (13-39) 10/25/16 08:00 ALT 26 U/L (7-52) 10/25/16 08:00 Alkaline Phosphatase 54 U/L (34-104) 10/25/16 08:00 Total Protein 7.5 gm/dL (6.0-8.3) 10/25/16 08:00 Albumin 4.5 gm/dL (4.2-5.5) 10/25/16 08:00 Globulin 3.0 gm/dL 10/25/16 08:00 Albumin/Globulin Ratio 1.5 (1.0-1.8) 10/25/16 08:00 Triglycerides 154 mg/dL (<150) H 10/25/16 08:00 Cholesterol 159 mg/dL (<200) 10/25/16 08:00 LDL Cholesterol Direct 122 mg/dL (75-193) 10/25/16 08:00 HDL Cholesterol 33 mg/dL (23-92) 10/25/16 08:00 Lipase 17 U/L (11-82) 10/25/16 08:00 TSH 1.69 uIU/ml (0.34-5.60) 10/25/16 08:00 Urine Source CLEAN C 10/25/16 07:30 Urine Color YELLOW 10/25/16 07:30 Urine Clarity SL. CLOUDY (CLEAR) 10/25/16 07:30 Urine pH 6.5 10/25/16 07:30 Ur Specific [place] 1.015 (1.005-1.030) 10/25/16 07:30 Urine Protein NEGATIVE mg/dL (NEGATIVE) 10/25/16 07:30 Urine Glucose (UA) 250 mg/dL (NEGATIVE) H 10/25/16 07:30 Urine Ketones TRACE mg/dL (NEGATIVE) 10/25/16 07:30 Urine Blood NEGATIVE (NEGATIVE) 10/25/16 07:30 Urine Nitrate NEGATIVE (NEGATIVE) 10/25/16 07:30 Urine Bilirubin NEGATIVE (NEGATIVE) 10/25/16 07:30 Urine Urobilinogen 2.0 E.U./dL (0.2 - 1.0) 10/25/16 07:30 Ur Leukocyte Esterase NEGATIVE (NEGATIVE) 10/25/16 07:30 Urine RBC NONE SEEN /hpf (0-5) 10/25/16 07:30 Urine WBC 0-2 /hpf (0-5) 10/25/16 07:30 Ur Epithelial Cells RARE /lpf (FEW) 10/25/16 07:30 Urine Bacteria NONE SEEN /hpf (NONE SEEN) 10/25/16 07:30 Urine Opiates Screen NEGATIVE (NEGATIVE) 10/25/16 07:30 Urine Methadone Screen NEGATIVE (NEGATIVE) 10/25/16 07:30 Ur Barbiturates Screen NEGATIVE (NEGATIVE) 10/25/16 07:30 Ur Tricyclics Screen POSITIVE (NEGATIVE) H 10/25/16 07:30 Ur Phencyclidine Scrn NEGATIVE (NEGATIVE) 10/25/16 07:30 Amphetamines Screen NEGATIVE (NEGATIVE) 10/25/16 07:30 U Methamphetamines Scrn NEGATIVE (NEGATIVE) 10/25/16 07:30 U Benzodiazepines Scrn POSITIVE (NEGATIVE) H 10/25/16 07:30 U Cocaine Metab Screen NEGATIVE (NEGATIVE) 10/25/16 07:30 U Cannabinoids Screen NEGATIVE (NEGATIVE) 10/25/16 07:30 Ethyl Alcohol < 10 mg/dL (0-10) 10/25/16 08:00 RPR NONREACTIVE (NONREACTIVE) 10/25/16 08:00 - Physical Exam Vitals and I&O: Vital Signs Temp 98.0 F 10/27/16 04:00 Pulse 93 10/27/16 04:00 Resp 20 10/27/16 04:00 BP 108/71 10/27/16 04:00 Pulse Ox 100 10/27/16 04:00 Intake & Output 10/26/16 10/27/16 10/27/16 18:59 06:59 18:59 Intake Total 100 500 Balance 100 500 Weight (lbs) 102.648 kg 102.512 kg 103.136 kg Intake: Intake, IV Amount 100 metroNIDAZOLE 500mg/NS 100 100mL 500 mg In 100 ml @ 100 mls/hr IV Q8HR [facility] Rx #:[id number] Oral 500 Other: # Voids 4 # Bowel Movements 0 Active Medications: Current Medications Alprazolam (Xanax) 0.5 mg PO DAILY [facility] PRN Reason: Protocol Stop: 12/25/16 08:59 Levofloxacin (Levaquin Pb) 500 mg in 100 mls @ 100 mls/hr IV Q24HR [facility] Stop: 12/25/16 16:59 Last Admin: 10/26/16 17:36 Dose: 100 mls/hr Metronidazole (Flagyl) 500 mg in 100 mls @ 100 mls/hr IV Q8HR [facility] Stop: 12/25/16 20:59 Last Admin: 10/27/16 05:13 Dose: 100 mls/hr Quetiapine Fumarate (Seroquel) 400 mg PO DAILY [facility] PRN Reason: Protocol Stop: 12/25/16 08:59 General: Alert, Oriented x3, Cooperative, No acute distress HEENT: Atraumatic, PERRLA, EOMI Neck: Supple Cardiovascular: Regular rate Lungs: Clear to auscultation Abdomen: Bowel sounds Neurological: Normal gait, Normal speech Assessment/Plan - Problem List Patient Problems: All Active Problems GENERALIZED ABDOMINAL PAIN (Acute) - Assessment Assessment: Current Active Problems Problem Status Onset GENERALIZED ABDOMINAL PAIN Acute RUQ abdominal pain cholelithiasis distended spleen low platelets history of IV drug use splenomegaly - Plan Plan: Cholelithiasis -- on IV Levofloxin, flagyl, clear liquid diet. for evaluation by Gen Surgery. Will order cardiac clearance with Dr. Jessica Duenas. Splenomegaly -- will order Hem/Onc consultation. Nutritional Asmnt/Malnutr-PDOC - Dietary Evaluation Malnutrition Findings (Please click <Entered> for more info): Nutritional Asmnt/Malnutrition Start: 10/26/16 14: 31 Text: Status: Complete Freq: Document 10/26/16 14:31 GSUN (Rec: 10/26/16 14:41 [email or web address] [email or web address]) Nutritional Asmnt/Malnutrition Patient General Information Nutritional Screening Consult Diagnosis RUQ abdominal pain, cholelithiasis, distended speen Pertinent Medical Hx/Surgical Hx RUQ abdominal pain, hx IV drug use Subjective Information [address] consult for BG >180, no hx of DM noted . 10/26 HIDA scan: cystic duct obstruction. Pt seen sitting in chair next to bed, ambulates, pleasant. Pt stated he is no longer in pain, wound like to be discharged, hungry. Pt has been NPO since adm. Pt stated usually very good appetite, denied nutritional concerns. CBW 226. 3lb with pt off and bedscale properly calibrated. Pt appears nourished and overweight. Current Diet Order/ Nutrition Support NPO Pertinent Medications Flagyl, Seroquel Pertinent Labs 10/25: glucose 187H on adm, A1c 5.1, triglycerides 154H Nutritional Hx/Data Height 1.75 m Height (Calculated Centimeters) 175.3 Current Weight (lbs) 102.648 kg Weight (Calculated Kilograms) 102.6 Weight (Calculated Grams) 540983.0 [place] Body Weight 160 Weight Status Obese GI Symptoms Food Allergies No Skin Integrity/Comment: Jose Eduardo Segura. optic fibre drawer: skin intact. Estimated Nutritional Goals BEE in Kcals: Adj wt of IBW Calories/Kcals/Kg AdjBW 176.6lb/80.2kg Kcals Calculated 2004-2408kcal (25-30kcal/kg) Protein: Adj wt of IBW Protein Calculated 64-80g (0.8-1g/kg) Fluid: ml 2004-2408ml (1ml/kcal) Nutritional Problem 1. Problem Problem Inadequate oral food beverage intake related to Etiology GI function, HIDA scan: cystic duct obstruction aeb Signs/Symptoms: NPO since adm Intervention/Recommendation Comments 1. When medically feasible to resume oral diet, recommend regular diet. Expected Outcomes/Goals Expected Outcomes/Goals 1. PO intake to meet at least 75% of estimated nutritional needs.
--- NOTE | 2016-10-27 11:28 | Consultation ---
DATE OF CONSULTATION: 10/25/2016 REFERRING PHYSICIAN: Dr. Lowery. REASON FOR CONSULTATION: Cytopenia and splenomegaly. HISTORY OF PRESENT ILLNESS: The patient is a 46-year-old male who was admitted with abdominal pain and found to have gallstones. The nuclear medicine scan showed nonvisualization of the gallbladder. The patient is followed by the GI and Surgery. He was found to have an enlarged spleen on CT scan. PAST SURGICAL HISTORY: None. MEDICAL HISTORY: Mononucleosis as a child. MEDICATIONS: At home, Xanax and Seroquel. PHYSICAL EXAMINATION: GENERAL: Awake, alert, oriented. VITAL SIGNS: Stable. HEENT: Atraumatic, no peripheral lymphadenopathy. CHEST: Clear. ABDOMEN: Soft, palpable spleen below the costal margin. LABORATORY DATA: Platelets 122, white count 3.9, hemoglobin 12.5. CT scan showed enlarged spleen and gallstones. ASSESSMENT AND PLAN: 1. Splenomegaly, etiology is not clear. The patient will need a bone marrow biopsy for possible splenic lymphoma. 2. Gallstones, per surgery. 3. 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 Thank you for the opportunity to participate in the care of this interesting case. JOB# [id number]
--- NOTE | 2016-10-27 13:46 | Consultation ---
DATE OF CONSULTATION: 10/25/2016 REFERRING PHYSICIAN: Dr. Lowery. REASON FOR CONSULTATION: Abdominal pain. Thank you for referring this patient to me. HISTORY OF PRESENT ILLNESS: This 46-year-old male with known history of gallstones and kidney stones that had been passed spontaneously about 3 years ago. The patient admits to smoking cigarettes and marijuana as well as amphetamines. CT scan of the abdomen shows gallstones and marked splenomegaly. LABORATORY STUDIES: WBC was normal except for low platelets at 122,000. Chemistry is essentially normal. Coagulation panel, PT is 9.1. PHYSICAL EXAMINATION: There is moderate tenderness in right upper quadrant. There is a large umbilical hernia with likely incarcerated omentum. It is nontender. RECOMMENDATIONS: The patient did admit to alcohol intake years back. Likely the splenomegaly is secondary to this. In view of the splenomegaly and thrombocytopenia, I would recommend Hematology evaluation before any kind of surgical intervention. JOB# [id number]
[2016-10-27] MEDS: Levofloxacin 500mg/100mL 500 MG/100 ML BAG IV SCH (16:30)
--- NOTE | 2016-10-28 00:07 | Consultation ---
DATE OF CONSULTATION: 10/25/2016 PATIENT OF: Dr. Lowery. HISTORY AND PHYSICAL: This 46-year-old male patient with a known history of cholecystitis. The patient is admitted. During the hospital stay, the patient was found to have splenomegaly, cholecystitis, thrombocytopenia. Cardiac consult was requested for surgery. PAST MEDICAL HISTORY: Cholecystitis. FAMILY HISTORY: Unremarkable. SOCIAL HISTORY: No history of smoking or alcohol abuse. ALLERGIES: No known allergies. PHYSICAL EXAMINATION: VITAL SIGNS: Blood pressure 130/70, pulse 70, respirations 20. HEAD: Normocephalic. No lumps or bumps. EYES: Pupils equal, reactive to light. Fundi show AV nicking, sclerae white, conjunctivae pink. NECK: Carotid 2+. Normal upstroke. JVD flat. Thyroid not palpable. LYMPHATICS: Lymph nodes not palpable. CHEST: Shows increased AP diameter. No kyphosis, scoliosis. LUNGS: Bilateral bronchovesicular breath sounds. HEART: PMI fifth intercostal space with lateral to midclavicular line. S1, S2. No S3, S4. Systolic murmur, grade 2/6, lower left sternal border without radiation. ABDOMEN: Soft. Liver, spleen not palpable, tender in the right upper quadrant. RECTAL: Deferred. EXTREMITIES: Peripheral pulses 2+. No pedal edema. CLINICAL IMPRESSION: Acute cholecystitis with cholelithiasis, thrombocytopenia, splenomegaly. PLAN: The patient is cleared for surgery cardiac-shore. The patient will need Hematology evaluation for splenomegaly. JOB# [id number]
[2016-10-28] MEDS: metroNIDAZOLE 500mg/NS 100mL 500 MG/100 ML BAG IV SCH (04:50)
--- NOTE | 2016-10-28 07:21 | General Progress Note ---
Subjective - Review of Systems Service Date: 10/28/16 Subjective: Patient was seen and evaluated. No nausea or vomiting. Patient was seen and evaluated by cardiology. Please see dictated report. Patient was also seen by Hem/onc for splenomegaly. Please see dictated report. Objective - Results Result Diagrams: 10/25/16 08:00 10/25/16 08:00 Recent Labs: Laboratory Last Values WBC 3.9 Th/cmm (4.8-10.8) L 10/25/16 08:00 RBC 4.45 Mil/cmm (4.30-5.70) 10/25/16 08:00 Hgb 12.5 gm/dL (13.2-17.3) L 10/25/16 08:00 Hct 37.0 % (39.0-49.0) L D 10/25/16 08:00 MCV 83.1 fl (80-99) 10/25/16 08:00 MCH 28.0 pg (26.0-30.0) 10/25/16 08:00 MCHC Differential 33.7 pg (28.0-36.0) 10/25/16 08:00 RDW 13.5 % (11.5-20.0) 10/25/16 08:00 Plt Count 122 Th/cmm (150-400) L 10/25/16 08:00 MPV 8.2 fl 10/25/16 08:00 Neutrophils (Manual) 80 % (40-80) 10/25/16 08:00 Lymphocytes 16 % (20-50) L 10/25/16 08:00 Monocytes 4 % (2-10) 10/25/16 08:00 Platelet Estimate DECREASED PLATELETS (NORMAL) 10/25/16 08:00 Platelet Morphology NORMAL (NORMAL) 10/25/16 08:00 RBC Morph Micro Appear NORMAL (NORMAL) 10/25/16 08:00 PT 9.1 SECONDS (9.5-11.5) L 10/25/16 08:00 INR 0.89 (0.5-1.4) 10/25/16 08:00 PTT (Actin FS) 26.8 SECONDS (26.0-38.0) 10/25/16 08:00 Sodium 133 mEq/L (136-145) L 10/25/16 08:00 Potassium 3.6 mEq/L (3.5-5.1) 10/25/16 08:00 Chloride 103 mEq/L (98-107) 10/25/16 08:00 Carbon Dioxide 22.6 mEq/L (21.0-31.0) 10/25/16 08:00 Anion Gap 11.0 (7.0-16.0) 10/25/16 08:00 BUN 23 mg/dL (7-25) 10/25/16 08:00 Creatinine 1.0 mg/dL (0.7-1.3) 10/25/16 08:00 Est GFR ( Amer) > 60.0 ml/min (>90) 10/25/16 08:00 Est GFR (Non-Af Amer) > 60.0 ml/min 10/25/16 08:00 BUN/Creatinine Ratio 23.0 10/25/16 08:00 Glucose 187 mg/dL (70-105) H 10/25/16 08:00 Hemoglobin A1c % 5.1 % (4.0-6.0) 10/25/16 08:00 Whole Bld Lactic Acid 1.79 mmol/L (0.60-1.99) 10/25/16 11:52 Calcium 9.3 mg/dL (8.6-10.3) 10/25/16 08:00 Total Bilirubin 0.7 mg/dL (0.3-1.0) 10/25/16 08:00 AST 22 U/L (13-39) 10/25/16 08:00 ALT 26 U/L (7-52) 10/25/16 08:00 Alkaline Phosphatase 54 U/L (34-104) 10/25/16 08:00 Total Protein 7.5 gm/dL (6.0-8.3) 10/25/16 08:00 Albumin 4.5 gm/dL (4.2-5.5) 10/25/16 08:00 Globulin 3.0 gm/dL 10/25/16 08:00 Albumin/Globulin Ratio 1.5 (1.0-1.8) 10/25/16 08:00 Triglycerides 154 mg/dL (<150) H 10/25/16 08:00 Cholesterol 159 mg/dL (<200) 10/25/16 08:00 LDL Cholesterol Direct 122 mg/dL (75-193) 10/25/16 08:00 HDL Cholesterol 33 mg/dL (23-92) 10/25/16 08:00 Lipase 17 U/L (11-82) 10/25/16 08:00 TSH 1.69 uIU/ml (0.34-5.60) 10/25/16 08:00 Urine Source CLEAN C 10/25/16 07:30 Urine Color YELLOW 10/25/16 07:30 Urine Clarity SL. CLOUDY (CLEAR) 10/25/16 07:30 Urine pH 6.5 10/25/16 07:30 Ur Specific [place] 1.015 (1.005-1.030) 10/25/16 07:30 Urine Protein NEGATIVE mg/dL (NEGATIVE) 10/25/16 07:30 Urine Glucose (UA) 250 mg/dL (NEGATIVE) H 10/25/16 07:30 Urine Ketones TRACE mg/dL (NEGATIVE) 10/25/16 07:30 Urine Blood NEGATIVE (NEGATIVE) 10/25/16 07:30 Urine Nitrate NEGATIVE (NEGATIVE) 10/25/16 07:30 Urine Bilirubin NEGATIVE (NEGATIVE) 10/25/16 07:30 Urine Urobilinogen 2.0 E.U./dL (0.2 - 1.0) 10/25/16 07:30 Ur Leukocyte Esterase NEGATIVE (NEGATIVE) 10/25/16 07:30 Urine RBC NONE SEEN /hpf (0-5) 10/25/16 07:30 Urine WBC 0-2 /hpf (0-5) 10/25/16 07:30 Ur Epithelial Cells RARE /lpf (FEW) 10/25/16 07:30 Urine Bacteria NONE SEEN /hpf (NONE SEEN) 10/25/16 07:30 Urine Opiates Screen NEGATIVE (NEGATIVE) 10/25/16 07:30 Urine Methadone Screen NEGATIVE (NEGATIVE) 10/25/16 07:30 Ur Barbiturates Screen NEGATIVE (NEGATIVE) 10/25/16 07:30 Ur Tricyclics Screen POSITIVE (NEGATIVE) H 10/25/16 07:30 Ur Phencyclidine Scrn NEGATIVE (NEGATIVE) 10/25/16 07:30 Amphetamines Screen NEGATIVE (NEGATIVE) 10/25/16 07:30 U Methamphetamines Scrn NEGATIVE (NEGATIVE) 10/25/16 07:30 U Benzodiazepines Scrn POSITIVE (NEGATIVE) H 10/25/16 07:30 U Cocaine Metab Screen NEGATIVE (NEGATIVE) 10/25/16 07:30 U Cannabinoids Screen NEGATIVE (NEGATIVE) 10/25/16 07:30 Ethyl Alcohol < 10 mg/dL (0-10) 10/25/16 08:00 RPR NONREACTIVE (NONREACTIVE) 10/25/16 08:00 - Physical Exam Vitals and I&O: Vital Signs Temp 97.8 F 10/28/16 04:00 Pulse 93 10/28/16 04:00 Resp 18 10/28/16 04:00 BP 97/59 10/28/16 04:00 Pulse Ox 98 10/28/16 04:00 Intake & Output 10/27/16 10/28/16 10/28/16 18:59 06:59 18:59 Intake Total 700 2400 Balance 700 2400 Weight (lbs) 103.136 kg 102.965 kg Intake: Intake, IV Amount 200 100 Levofloxacin 500mg/100mL 100 500 mg In 100 ml @ 100 mls/hr IV Q24HR [facility] Rx#: [id number] metroNIDAZOLE 500mg/NS 100 100 100mL 500 mg In 100 ml @ 100 mls/hr IV Q8HR [facility] Rx #:[id number] Oral 500 2300 Other: # Voids 4 3 # Bowel Movements 0 0 Active Medications: Current Medications Alprazolam (Xanax) 0.5 mg PO DAILY [facility] PRN Reason: Protocol Stop: 12/25/16 08:59 Last Admin: 10/27/16 16:30 Dose: 0.5 mg Levofloxacin (Levaquin Pb) 500 mg in 100 mls @ 100 mls/hr IV Q24HR [facility] Stop: 12/25/16 16:59 Last Infusion: 10/27/16 17:30 Dose: Infused Metronidazole (Flagyl) 500 mg in 100 mls @ 100 mls/hr IV Q8HR [facility] Stop: 12/25/16 20:59 Last Admin: 10/28/16 04:50 Dose: 100 mls/hr Quetiapine Fumarate (Seroquel) 400 mg PO DAILY [facility] PRN Reason: Protocol Stop: 12/25/16 08:59 Last Admin: 10/27/16 16:30 Dose: 400 mg General: Alert, Oriented x3, Cooperative, No acute distress HEENT: Atraumatic, PERRLA, EOMI Neck: Supple Cardiovascular: Regular rate Lungs: Clear to auscultation Abdomen: Bowel sounds Neurological: Normal gait, Normal speech Assessment/Plan - Problem List Patient Problems: All Active Problems Cholelithiases (Acute) GENERALIZED ABDOMINAL PAIN (Acute) Splenomegaly (Acute) R16.1 - Assessment Assessment: Current Active Problems Problem Status Onset GENERALIZED ABDOMINAL PAIN Acute RUQ abdominal pain cholelithiasis distended spleen low platelets history of IV drug use splenomegaly - Plan Plan: Cholelithiasis -- on IV Levofloxin, flagyl, clear liquid diet. for evaluation by Gen Surgery. Patient was seen for cardiac clearance by cardiology. Please see dictated report. Splenomegaly -- patient was seen by Hem/onc. Please see dictated report. Nutritional Asmnt/Malnutr-PDOC - Dietary Evaluation Malnutrition Findings (Please click <Entered> for more info): Nutritional Asmnt/Malnutrition Start: 10/26/16 14: 31 Text: Status: Complete Freq: Document 10/26/16 14:31 GSUN (Rec: 10/26/16 14:41 GSUN [email or web address]) Nutritional Asmnt/Malnutrition Patient General Information Nutritional Screening Consult Diagnosis RUQ abdominal pain, cholelithiasis, distended speen Pertinent Medical Hx/Surgical Hx RUQ abdominal pain, hx IV drug use Subjective Information [address] consult for BG >180, no hx of DM noted . 10/26 HIDA scan: cystic duct obstruction. Pt seen sitting in chair next to bed, ambulates, pleasant. Pt stated he is no longer in pain, wound like to be discharged, hungry. Pt has been NPO since adm. Pt stated usually very good appetite, denied nutritional concerns. CBW 226. 3lb with pt off and bedscale properly calibrated. Pt appears nourished and overweight. 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 Estimated Nutritional Goals BEE in Kcals: Adj wt of IBW Calories/Kcals/Kg AdjBW 176.6lb/80.2kg Kcals Calculated 2004-2408kcal (25-30kcal/kg) Protein: Adj wt of IBW Protein Calculated 64-80g (0.8-1g/kg) Fluid: ml 2004-2408ml (1ml/kcal) Nutritional Problem 1. Problem Problem Inadequate oral food beverage intake related to Etiology GI function, HIDA scan: cystic duct obstruction aeb Signs/Symptoms: NPO since adm Intervention/Recommendation Comments 1. When medically feasible to resume oral diet, recommend regular diet. Expected Outcomes/Goals Expected Outcomes/Goals 1. PO intake to meet at least 75% of estimated nutritional needs.
--- NOTE | 2016-10-28 10:21 | General Progress Note ---
Subjective - Review of Systems Service Date: 10/28/16 Objective - Results Result Diagrams: 10/25/16 08:00 10/25/16 08:00 Recent Labs: Laboratory Last Values WBC 3.9 Th/cmm (4.8-10.8) L 10/25/16 08:00 RBC 4.45 Mil/cmm (4.30-5.70) 10/25/16 08:00 Hgb 12.5 gm/dL (13.2-17.3) L 10/25/16 08:00 Hct 37.0 % (39.0-49.0) L D 10/25/16 08:00 MCV 83.1 fl (80-99) 10/25/16 08:00 MCH 28.0 pg (26.0-30.0) 10/25/16 08:00 MCHC Differential 33.7 pg (28.0-36.0) 10/25/16 08:00 RDW 13.5 % (11.5-20.0) 10/25/16 08:00 Plt Count 122 Th/cmm (150-400) L 10/25/16 08:00 MPV 8.2 fl 10/25/16 08:00 Neutrophils (Manual) 80 % (40-80) 10/25/16 08:00 Lymphocytes 16 % (20-50) L 10/25/16 08:00 Monocytes 4 % (2-10) 10/25/16 08:00 Platelet Estimate DECREASED PLATELETS (NORMAL) 10/25/16 08:00 Platelet Morphology NORMAL (NORMAL) 10/25/16 08:00 RBC Morph Micro Appear NORMAL (NORMAL) 10/25/16 08:00 PT 9.1 SECONDS (9.5-11.5) L 10/25/16 08:00 INR 0.89 (0.5-1.4) 10/25/16 08:00 PTT (Actin FS) 26.8 SECONDS (26.0-38.0) 10/25/16 08:00 Sodium 133 mEq/L (136-145) L 10/25/16 08:00 Potassium 3.6 mEq/L (3.5-5.1) 10/25/16 08:00 Chloride 103 mEq/L (98-107) 10/25/16 08:00 Carbon Dioxide 22.6 mEq/L (21.0-31.0) 10/25/16 08:00 Anion Gap 11.0 (7.0-16.0) 10/25/16 08:00 BUN 23 mg/dL (7-25) 10/25/16 08:00 Creatinine 1.0 mg/dL (0.7-1.3) 10/25/16 08:00 Est GFR ( Amer) > 60.0 ml/min (>90) 10/25/16 08:00 Est GFR (Non-Af Amer) > 60.0 ml/min 10/25/16 08:00 BUN/Creatinine Ratio 23.0 10/25/16 08:00 Glucose 187 mg/dL (70-105) H 10/25/16 08:00 Hemoglobin A1c % 5.1 % (4.0-6.0) 10/25/16 08:00 Whole Bld Lactic Acid 1.79 mmol/L (0.60-1.99) 10/25/16 11:52 Calcium 9.3 mg/dL (8.6-10.3) 10/25/16 08:00 Total Bilirubin 0.7 mg/dL (0.3-1.0) 10/25/16 08:00 AST 22 U/L (13-39) 10/25/16 08:00 ALT 26 U/L (7-52) 10/25/16 08:00 Alkaline Phosphatase 54 U/L (34-104) 10/25/16 08:00 Total Protein 7.5 gm/dL (6.0-8.3) 10/25/16 08:00 Albumin 4.5 gm/dL (4.2-5.5) 10/25/16 08:00 Globulin 3.0 gm/dL 10/25/16 08:00 Albumin/Globulin Ratio 1.5 (1.0-1.8) 10/25/16 08:00 Triglycerides 154 mg/dL (<150) H 10/25/16 08:00 Cholesterol 159 mg/dL (<200) 10/25/16 08:00 LDL Cholesterol Direct 122 mg/dL (75-193) 10/25/16 08:00 HDL Cholesterol 33 mg/dL (23-92) 10/25/16 08:00 Lipase 17 U/L (11-82) 10/25/16 08:00 TSH 1.69 uIU/ml (0.34-5.60) 10/25/16 08:00 Urine Source CLEAN C 10/25/16 07:30 Urine Color YELLOW 10/25/16 07:30 Urine Clarity SL. CLOUDY (CLEAR) 10/25/16 07:30 Urine pH 6.5 10/25/16 07:30 Ur Specific [place] 1.015 (1.005-1.030) 10/25/16 07:30 Urine Protein NEGATIVE mg/dL (NEGATIVE) 10/25/16 07:30 Urine Glucose (UA) 250 mg/dL (NEGATIVE) H 10/25/16 07:30 Urine Ketones TRACE mg/dL (NEGATIVE) 10/25/16 07:30 Urine Blood NEGATIVE (NEGATIVE) 10/25/16 07:30 Urine Nitrate NEGATIVE (NEGATIVE) 10/25/16 07:30 Urine Bilirubin NEGATIVE (NEGATIVE) 10/25/16 07:30 Urine Urobilinogen 2.0 E.U./dL (0.2 - 1.0) 10/25/16 07:30 Ur Leukocyte Esterase NEGATIVE (NEGATIVE) 10/25/16 07:30 Urine RBC NONE SEEN /hpf (0-5) 10/25/16 07:30 Urine WBC 0-2 /hpf (0-5) 10/25/16 07:30 Ur Epithelial Cells RARE /lpf (FEW) 10/25/16 07:30 Urine Bacteria NONE SEEN /hpf (NONE SEEN) 10/25/16 07:30 Urine Opiates Screen NEGATIVE (NEGATIVE) 10/25/16 07:30 Urine Methadone Screen NEGATIVE (NEGATIVE) 10/25/16 07:30 Ur Barbiturates Screen NEGATIVE (NEGATIVE) 10/25/16 07:30 Ur Tricyclics Screen POSITIVE (NEGATIVE) H 10/25/16 07:30 Ur Phencyclidine Scrn NEGATIVE (NEGATIVE) 10/25/16 07:30 Amphetamines Screen NEGATIVE (NEGATIVE) 10/25/16 07:30 U Methamphetamines Scrn NEGATIVE (NEGATIVE) 10/25/16 07:30 U Benzodiazepines Scrn POSITIVE (NEGATIVE) H 10/25/16 07:30 U Cocaine Metab Screen NEGATIVE (NEGATIVE) 10/25/16 07:30 U Cannabinoids Screen NEGATIVE (NEGATIVE) 10/25/16 07:30 Ethyl Alcohol < 10 mg/dL (0-10) 10/25/16 08:00 RPR NONREACTIVE (NONREACTIVE) 10/25/16 08:00 - Physical Exam Vitals and I&O: Vital Signs Temp 97.8 F 10/28/16 04:00 Pulse 93 10/28/16 04:00 Resp 18 10/28/16 04:00 BP 97/59 10/28/16 04:00 Pulse Ox 98 10/28/16 04:00 Intake & Output 10/27/16 10/28/16 10/28/16 18:59 06:59 18:59 Intake Total 700 2400 Balance 700 2400 Weight (lbs) 103.136 kg 102.965 kg Intake: Intake, IV Amount 200 100 Levofloxacin 500mg/100mL 100 500 mg In 100 ml @ 100 mls/hr IV Q24HR [facility] Rx#: [id number] metroNIDAZOLE 500mg/NS 100 100 100mL 500 mg In 100 ml @ 100 mls/hr IV Q8HR [facility] Rx #:[id number] Oral 500 2300 Other: # Voids 4 3 # Bowel Movements 0 0 Active Medications: Current Medications Alprazolam (Xanax) 0.5 mg PO DAILY [facility] PRN Reason: Protocol Stop: 12/25/16 08:59 Last Admin: 10/27/16 16:30 Dose: 0.5 mg Levofloxacin (Levaquin Pb) 500 mg in 100 mls @ 100 mls/hr IV Q24HR [facility] Stop: 12/25/16 16:59 Last Infusion: 10/27/16 17:30 Dose: Infused Metronidazole (Flagyl) 500 mg in 100 mls @ 100 mls/hr IV Q8HR [facility] Stop: 12/25/16 20:59 Last Admin: 10/28/16 04:50 Dose: 100 mls/hr Quetiapine Fumarate (Seroquel) 400 mg PO DAILY [facility] PRN Reason: Protocol Stop: 12/25/16 08:59 Last Admin: 10/27/16 16:30 Dose: 400 mg General: Alert, Oriented x3, Cooperative, No acute distress HEENT: Atraumatic, PERRLA, EOMI Neck: Supple Cardiovascular: Regular rate Lungs: Clear to auscultation Abdomen: Bowel sounds Neurological: Normal gait, Normal speech Assessment/Plan - Problem List Patient Problems: All Active Problems Cholelithiases (Acute) GENERALIZED ABDOMINAL PAIN (Acute) Splenomegaly (Acute) R16.1 - Assessment Assessment: * splenomegaly * pancytopenia secondary to hypersplenism * gall stones will need bone marrow biopsy as outpatient to evaluate for splenic lymphoma hematologically stable Nutritional Asmnt/Malnutr-PDOC - Dietary Evaluation Malnutrition Findings (Please click <Entered> for more info): Nutritional Asmnt/Malnutrition Start: 10/26/16 14: 31 Text: Status: Complete Freq: Document 10/26/16 14:31 GSUN (Rec: 10/26/16 14:41 [email or web address]) Nutritional Asmnt/Malnutrition Patient General Information Nutritional Screening Consult Diagnosis RUQ abdominal pain, cholelithiasis, distended speen Pertinent Medical Hx/Surgical Hx RUQ abdominal pain, hx IV drug use Subjective Information [address] consult for BG >180, no hx of DM noted . 10/26 HIDA scan: cystic duct obstruction. Pt seen sitting in chair next to bed, ambulates, pleasant. Pt stated he is no longer in pain, wound like to be discharged, hungry. Pt has been NPO since adm. Pt stated usually very good appetite, denied nutritional concerns. CBW 226. 3lb with pt off and bedscale properly calibrated. Pt appears nourished and overweight. 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 Estimated Nutritional Goals BEE in Kcals: Adj wt of IBW Calories/Kcals/Kg AdjBW 176.6lb/80.2kg Kcals Calculated 2004-2408kcal (25-30kcal/kg) Protein: Adj wt of IBW Protein Calculated 64-80g (0.8-1g/kg) Fluid: ml 2004-2408ml (1ml/kcal) Nutritional Problem 1. Problem Problem Inadequate oral food beverage intake related to Etiology GI function, HIDA scan: cystic duct obstruction aeb Signs/Symptoms: NPO since adm Intervention/Recommendation Comments 1. When medically feasible to resume oral diet, recommend regular diet. Expected Outcomes/Goals Expected Outcomes/Goals 1. PO intake to meet at least 75% of estimated nutritional needs.
--- NOTE | 2016-10-28 12:34 | General Progress Note ---
Subjective - Review of Systems Service Date: 10/28/16 Events since last encounter: stat CBC and CMP ordered Objective - Results Result Diagrams: 10/25/16 08:00 10/25/16 08:00 Recent Labs: Laboratory Last Values WBC 3.9 Th/cmm (4.8-10.8) L 10/25/16 08:00 RBC 4.45 Mil/cmm (4.30-5.70) 10/25/16 08:00 Hgb 12.5 gm/dL (13.2-17.3) L 10/25/16 08:00 Hct 37.0 % (39.0-49.0) L D 10/25/16 08:00 MCV 83.1 fl (80-99) 10/25/16 08:00 MCH 28.0 pg (26.0-30.0) 10/25/16 08:00 MCHC Differential 33.7 pg (28.0-36.0) 10/25/16 08:00 RDW 13.5 % (11.5-20.0) 10/25/16 08:00 Plt Count 122 Th/cmm (150-400) L 10/25/16 08:00 MPV 8.2 fl 10/25/16 08:00 Neutrophils (Manual) 80 % (40-80) 10/25/16 08:00 Lymphocytes 16 % (20-50) L 10/25/16 08:00 Monocytes 4 % (2-10) 10/25/16 08:00 Platelet Estimate DECREASED PLATELETS (NORMAL) 10/25/16 08:00 Platelet Morphology NORMAL (NORMAL) 10/25/16 08:00 RBC Morph Micro Appear NORMAL (NORMAL) 10/25/16 08:00 PT 9.1 SECONDS (9.5-11.5) L 10/25/16 08:00 INR 0.89 (0.5-1.4) 10/25/16 08:00 PTT (Actin FS) 26.8 SECONDS (26.0-38.0) 10/25/16 08:00 Sodium 133 mEq/L (136-145) L 10/25/16 08:00 Potassium 3.6 mEq/L (3.5-5.1) 10/25/16 08:00 Chloride 103 mEq/L (98-107) 10/25/16 08:00 Carbon Dioxide 22.6 mEq/L (21.0-31.0) 10/25/16 08:00 Anion Gap 11.0 (7.0-16.0) 10/25/16 08:00 BUN 23 mg/dL (7-25) 10/25/16 08:00 Creatinine 1.0 mg/dL (0.7-1.3) 10/25/16 08:00 Est GFR ( Amer) > 60.0 ml/min (>90) 10/25/16 08:00 Est GFR (Non-Af Amer) > 60.0 ml/min 10/25/16 08:00 BUN/Creatinine Ratio 23.0 10/25/16 08:00 Glucose 187 mg/dL (70-105) H 10/25/16 08:00 Hemoglobin A1c % 5.1 % (4.0-6.0) 10/25/16 08:00 Whole Bld Lactic Acid 1.79 mmol/L (0.60-1.99) 10/25/16 11:52 Calcium 9.3 mg/dL (8.6-10.3) 10/25/16 08:00 Total Bilirubin 0.7 mg/dL (0.3-1.0) 10/25/16 08:00 AST 22 U/L (13-39) 10/25/16 08:00 ALT 26 U/L (7-52) 10/25/16 08:00 Alkaline Phosphatase 54 U/L (34-104) 10/25/16 08:00 Total Protein 7.5 gm/dL (6.0-8.3) 10/25/16 08:00 Albumin 4.5 gm/dL (4.2-5.5) 10/25/16 08:00 Globulin 3.0 gm/dL 10/25/16 08:00 Albumin/Globulin Ratio 1.5 (1.0-1.8) 10/25/16 08:00 Triglycerides 154 mg/dL (<150) H 10/25/16 08:00 Cholesterol 159 mg/dL (<200) 10/25/16 08:00 LDL Cholesterol Direct 122 mg/dL (75-193) 10/25/16 08:00 HDL Cholesterol 33 mg/dL (23-92) 10/25/16 08:00 Lipase 17 U/L (11-82) 10/25/16 08:00 TSH 1.69 uIU/ml (0.34-5.60) 10/25/16 08:00 Urine Source CLEAN C 10/25/16 07:30 Urine Color YELLOW 10/25/16 07:30 Urine Clarity SL. CLOUDY (CLEAR) 10/25/16 07:30 Urine pH 6.5 10/25/16 07:30 Ur Specific [place] 1.015 (1.005-1.030) 10/25/16 07:30 Urine Protein NEGATIVE mg/dL (NEGATIVE) 10/25/16 07:30 Urine Glucose (UA) 250 mg/dL (NEGATIVE) H 10/25/16 07:30 Urine Ketones TRACE mg/dL (NEGATIVE) 10/25/16 07:30 Urine Blood NEGATIVE (NEGATIVE) 10/25/16 07:30 Urine Nitrate NEGATIVE (NEGATIVE) 10/25/16 07:30 Urine Bilirubin NEGATIVE (NEGATIVE) 10/25/16 07:30 Urine Urobilinogen 2.0 E.U./dL (0.2 - 1.0) 10/25/16 07:30 Ur Leukocyte Esterase NEGATIVE (NEGATIVE) 10/25/16 07:30 Urine RBC NONE SEEN /hpf (0-5) 10/25/16 07:30 Urine WBC 0-2 /hpf (0-5) 10/25/16 07:30 Ur Epithelial Cells RARE /lpf (FEW) 10/25/16 07:30 Urine Bacteria NONE SEEN /hpf (NONE SEEN) 10/25/16 07:30 Urine Opiates Screen NEGATIVE (NEGATIVE) 10/25/16 07:30 Urine Methadone Screen NEGATIVE (NEGATIVE) 10/25/16 07:30 Ur Barbiturates Screen NEGATIVE (NEGATIVE) 10/25/16 07:30 Ur Tricyclics Screen POSITIVE (NEGATIVE) H 10/25/16 07:30 Ur Phencyclidine Scrn NEGATIVE (NEGATIVE) 10/25/16 07:30 Amphetamines Screen NEGATIVE (NEGATIVE) 10/25/16 07:30 U Methamphetamines Scrn NEGATIVE (NEGATIVE) 10/25/16 07:30 U Benzodiazepines Scrn POSITIVE (NEGATIVE) H 10/25/16 07:30 U Cocaine Metab Screen NEGATIVE (NEGATIVE) 10/25/16 07:30 U Cannabinoids Screen NEGATIVE (NEGATIVE) 10/25/16 07:30 Ethyl Alcohol < 10 mg/dL (0-10) 10/25/16 08:00 RPR NONREACTIVE (NONREACTIVE) 10/25/16 08:00 - Physical Exam Vitals and I&O: Vital Signs Temp 98 F 10/28/16 08:00 Pulse 74 10/28/16 08:00 Resp 18 10/28/16 04:00 BP 101/60 10/28/16 08:00 Pulse Ox 98 10/28/16 04:00 Intake & Output 10/27/16 10/28/16 10/28/16 18:59 06:59 18:59 Intake Total 700 2400 Balance 700 2400 Weight (lbs) 103.136 kg 102.965 kg Intake: Intake, IV Amount 200 100 Levofloxacin 500mg/100mL 100 500 mg In 100 ml @ 100 mls/hr IV Q24HR [facility] Rx#: [id number] metroNIDAZOLE 500mg/NS 100 100 100mL 500 mg In 100 ml @ 100 mls/hr IV Q8HR [facility] Rx #:[id number] Oral 500 2300 Other: # Voids 4 3 # Bowel Movements 0 0 Active Medications: Current Medications Alprazolam (Xanax) 0.5 mg PO DAILY [facility] PRN Reason: Protocol Stop: 12/25/16 08:59 Last Admin: 10/28/16 10:40 Dose: Not Given Levofloxacin (Levaquin Pb) 500 mg in 100 mls @ 100 mls/hr IV Q24HR [facility] Stop: 12/25/16 16:59 Last Infusion: 10/27/16 17:30 Dose: Infused Metronidazole (Flagyl) 500 mg in 100 mls @ 100 mls/hr IV Q8HR [facility] Stop: 12/25/16 20:59 Last Admin: 10/28/16 04:50 Dose: 100 mls/hr Quetiapine Fumarate (Seroquel) 400 mg PO DAILY [facility] PRN Reason: Protocol Stop: 12/25/16 08:59 Last Admin: 10/28/16 10:34 Dose: Not Given General: Alert, Oriented x3, Cooperative, No acute distress HEENT: Atraumatic, PERRLA, EOMI Neck: Supple Cardiovascular: Regular rate Lungs: Clear to auscultation Abdomen: Bowel sounds Neurological: Normal gait, Normal speech Assessment/Plan - Problem List Patient Problems: All Active Problems Cholelithiases (Acute) GENERALIZED ABDOMINAL PAIN (Acute) Splenomegaly (Acute) R16.1 Nutritional Asmnt/Malnutr-PDOC - Dietary Evaluation Malnutrition Findings (Please click <Entered> for more info): Nutritional Asmnt/Malnutrition Start: 10/26/16 14: 31 Text: Status: Complete Freq: Document 10/26/16 14:31 SD (Rec: 10/26/16 14:41 [email or web address]) Nutritional Asmnt/Malnutrition Patient General Information Nutritional Screening Consult Diagnosis RUQ abdominal pain, cholelithiasis, distended speen Pertinent Medical Hx/Surgical Hx RUQ abdominal pain, hx IV drug use Subjective Information [address] consult for BG >180, no hx of DM noted . 10/26 HIDA scan: cystic duct obstruction. Pt seen sitting in chair next to bed, ambulates, pleasant. Pt stated he is no longer in pain, wound like to be discharged, hungry. Pt has been NPO since adm. Pt stated usually very good appetite, denied nutritional concerns. CBW 226. 3lb with pt off and bedscale properly calibrated. Pt appears nourished and overweight. 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 Estimated Nutritional Goals BEE in Kcals: Adj wt of IBW Calories/Kcals/Kg AdjBW 176.6lb/80.2kg Kcals Calculated 2004-2408kcal (25-30kcal/kg) Protein: Adj wt of IBW Protein Calculated 64-80g (0.8-1g/kg) Fluid: ml 2004-2408ml (1ml/kcal) Nutritional Problem 1. Problem Problem Inadequate oral food beverage intake related to Etiology GI function, HIDA scan: cystic duct obstruction aeb Signs/Symptoms: NPO since adm Intervention/Recommendation Comments 1. When medically feasible to resume oral diet, recommend regular diet. Expected Outcomes/Goals Expected Outcomes/Goals 1. PO intake to meet at least 75% of estimated nutritional needs.
--- NOTE | 2016-11-03 12:20 | Discharge Summary ---
General Discharge Summary - Discharge Summary Date of Admission: 11/25/16 Admitting Diagnosis: RUQ abdominal Pain Patient Problems: All Active Problems Cholelithiases (Acute) GENERALIZED ABDOMINAL PAIN (Acute) Splenomegaly (Acute) R16.1 Discharge Date: 11/28/16 Discharge Diagnosis: Same as Above Laboratory Findings: Laboratory Tests 10/25/16 10/25/16 10/25/16 07:30 07:30 08:00 WBC RBC Hgb Hct MCV MCH MCHC Differential RDW Plt Count MPV Neutrophils (Manual) Lymphocytes Monocytes Platelet Estimate Platelet Morphology RBC Morph Micro Appear PT 9.1 L INR 0.89 PTT (Actin FS) 26.8 Sodium Potassium Chloride Carbon Dioxide Anion Gap BUN Creatinine Est GFR ( Amer) Est GFR (Non-Af Amer) BUN/Creatinine Ratio Glucose Hemoglobin A1c % Whole Bld Lactic Acid Calcium Total Bilirubin AST ALT Alkaline Phosphatase Total Protein Albumin Globulin Albumin/Globulin Ratio Triglycerides Cholesterol LDL Cholesterol Direct HDL Cholesterol Lipase TSH Urine Source CLEAN C Urine Color YELLOW Urine Clarity SL. CLOUDY Urine pH 6.5 Ur Specific Collins 1.015 Urine Protein NEGATIVE Urine Glucose (UA) 250 H Urine Ketones TRACE Urine Blood NEGATIVE Urine Nitrate NEGATIVE Urine Bilirubin NEGATIVE Urine Urobilinogen 2.0 Ur Leukocyte Esterase NEGATIVE Urine RBC NONE SEEN Urine WBC 0-2 Ur Epithelial Cells RARE Urine Bacteria NONE SEEN Urine Opiates Screen NEGATIVE Urine Methadone Screen NEGATIVE Ur Barbiturates Screen NEGATIVE Ur Tricyclics Screen POSITIVE H Ur Phencyclidine Scrn NEGATIVE Amphetamines Screen NEGATIVE U Methamphetamines Scrn NEGATIVE U Benzodiazepines Scrn POSITIVE H U Cocaine Metab Screen NEGATIVE U Cannabinoids Screen NEGATIVE Ethyl Alcohol RPR 10/25/16 10/25/16 10/25/16 08:00 08:00 08:00 WBC 3.9 L RBC 4.45 Hgb 12.5 L Hct 37.0 L D MCV 83.1 MCH 28.0 MCHC Differential 33.7 RDW 13.5 Plt Count 122 L MPV 8.2 Neutrophils (Manual) 80 Lymphocytes 16 L Monocytes 4 Platelet Estimate DECREASED PLATELETS Platelet Morphology NORMAL RBC Morph Micro Appear NORMAL PT INR PTT (Actin FS) Sodium 133 L Potassium 3.6 Chloride 103 Carbon Dioxide 22.6 Anion Gap 11.0 BUN 23 Creatinine 1.0 Est GFR ( Amer) > 60.0 Est GFR (Non-Af Amer) > 60.0 BUN/Creatinine Ratio 23.0 Glucose 187 H Hemoglobin A1c % Whole Bld Lactic Acid Calcium 9.3 Total Bilirubin 0.7 AST 22 ALT 26 Alkaline Phosphatase 54 Total Protein 7.5 Albumin 4.5 Globulin 3.0 Albumin/Globulin Ratio 1.5 Triglycerides 154 H Cholesterol 159 LDL Cholesterol Direct 122 HDL Cholesterol 33 Lipase TSH Urine Source Urine Color Urine Clarity Urine pH Ur Specific Collins Urine Protein Urine Glucose (UA) Urine Ketones Urine Blood Urine Nitrate Urine Bilirubin Urine Urobilinogen Ur Leukocyte Esterase Urine RBC Urine WBC Ur Epithelial Cells Urine Bacteria Urine Opiates Screen Urine Methadone Screen Ur Barbiturates Screen Ur Tricyclics Screen Ur Phencyclidine Scrn Amphetamines Screen U Methamphetamines Scrn U Benzodiazepines Scrn U Cocaine Metab Screen U Cannabinoids Screen Ethyl Alcohol RPR 10/25/16 10/25/16 10/25/16 08:00 08:00 08:00 WBC RBC Hgb Hct MCV MCH MCHC Differential RDW Plt Count MPV Neutrophils (Manual) Lymphocytes Monocytes Platelet Estimate Platelet Morphology RBC Morph Micro Appear PT INR PTT (Actin FS) Sodium Potassium Chloride Carbon Dioxide Anion Gap BUN Creatinine Est GFR ( Amer) Est GFR (Non-Af Amer) BUN/Creatinine Ratio Glucose Hemoglobin A1c % Whole Bld Lactic Acid Calcium Total Bilirubin AST ALT Alkaline Phosphatase Total Protein Albumin Globulin Albumin/Globulin Ratio Triglycerides Cholesterol LDL Cholesterol Direct HDL Cholesterol Lipase TSH 1.69 Urine Source Urine Color Urine Clarity Urine pH Ur Specific Collins Urine Protein Urine Glucose (UA) Urine Ketones Urine Blood Urine Nitrate Urine Bilirubin Urine Urobilinogen Ur Leukocyte Esterase Urine RBC Urine WBC Ur Epithelial Cells Urine Bacteria Urine Opiates Screen Urine Methadone Screen Ur Barbiturates Screen Ur Tricyclics Screen Ur Phencyclidine Scrn Amphetamines Screen U Methamphetamines Scrn U Benzodiazepines Scrn U Cocaine Metab Screen U Cannabinoids Screen Ethyl Alcohol < 10 RPR NONREACTIVE 10/25/16 10/25/16 10/25/16 08:00 08:00 08:50 WBC RBC Hgb Hct MCV MCH MCHC Differential RDW Plt Count MPV Neutrophils (Manual) Lymphocytes Monocytes Platelet Estimate Platelet Morphology RBC Morph Micro Appear PT INR PTT (Actin FS) Sodium Potassium Chloride Carbon Dioxide Anion Gap BUN Creatinine Est GFR ( Amer) Est GFR (Non-Af Amer) BUN/Creatinine Ratio Glucose Hemoglobin A1c % 5.1 Whole Bld Lactic Acid 2.31 H* Calcium Total Bilirubin AST ALT Alkaline Phosphatase Total Protein Albumin Globulin Albumin/Globulin Ratio Triglycerides Cholesterol LDL Cholesterol Direct HDL Cholesterol Lipase 17 TSH Urine Source Urine Color Urine Clarity Urine pH Ur Specific Collins Urine Protein Urine Glucose (UA) Urine Ketones Urine Blood Urine Nitrate Urine Bilirubin Urine Urobilinogen Ur Leukocyte Esterase Urine RBC Urine WBC Ur Epithelial Cells Urine Bacteria Urine Opiates Screen Urine Methadone Screen Ur Barbiturates Screen Ur Tricyclics Screen Ur Phencyclidine Scrn Amphetamines Screen U Methamphetamines Scrn U Benzodiazepines Scrn U Cocaine Metab Screen U Cannabinoids Screen Ethyl Alcohol RPR 10/25/16 11:52 WBC RBC Hgb Hct MCV MCH MCHC Differential RDW Plt Count MPV Neutrophils (Manual) Lymphocytes Monocytes Platelet Estimate Platelet Morphology RBC Morph Micro Appear PT INR PTT (Actin FS) Sodium Potassium Chloride Carbon Dioxide Anion Gap BUN Creatinine Est GFR ( Amer) Est GFR (Non-Af Amer) BUN/Creatinine Ratio Glucose Hemoglobin A1c % Whole Bld Lactic Acid 1.79 Calcium Total Bilirubin AST ALT Alkaline Phosphatase Total Protein Albumin Globulin Albumin/Globulin Ratio Triglycerides Cholesterol LDL Cholesterol Direct HDL Cholesterol Lipase TSH Urine Source Urine Color Urine Clarity Urine pH Ur Specific Collins Urine Protein Urine Glucose (UA) Urine Ketones Urine Blood Urine Nitrate Urine Bilirubin Urine Urobilinogen Ur Leukocyte Esterase Urine RBC Urine WBC Ur Epithelial Cells Urine Bacteria Urine Opiates Screen Urine Methadone Screen Ur Barbiturates Screen Ur Tricyclics Screen Ur Phencyclidine Scrn Amphetamines Screen U Methamphetamines Scrn U Benzodiazepines Scrn U Cocaine Metab Screen U Cannabinoids Screen Ethyl Alcohol RPR Hospital Course: Brief HPI : 46 year old male who presents to [facility] ER with RUQ abdominal pain. Denies any nausea or vomiting. States that he had decrease appetite. He denies any previous abdominal surgery. Denies dysuria or penile discharge. Denies diarrhea and constipation. While in the ER patient had a CT Abd/Pelvis which revealed Cholelithiasis. Patient was seen and evaluated by GI who order UGI series which showed mildly distended stomach nonspecific. Patient also had a HIDA scan which was consistent with cystic duct obstruction. Patient was subsequently seen and evaluated by General Surgeon. Please see dictated report. During the patient evaluation he was found to have splenomegaly. He was seen and evaluated by Hem/ Onc for the splenomegaly. Please see dictated report. Patient was to have outpatient workup with his PMD. Patient was subsequently discharged home to follow up with his regular PMD for outpatient workup of his splenomegaly and to allow the gallbladder to "cool down." The patient was given a course of oral antibiotics (levofloxin and flagyl) for one week and to follow up with his PMD. Patient was advised to adhere to a low cholesterol diet. Treatment: Discharge Instructions Start: 10/25/16 13: 17 Freq: ONCE Status: Discharge Document 10/28/16 10:47 KAREN (Rec: 10/28/16 11:08 SHARILISA PEPPER- MS1) Discharge Instructions Condition Upon Discharge/Transfer: Alert Eating: Independent Transfers: Independent Ambulate: Independent IV End Time Documented in eMAR? Yes Feeding Tube: No Chest Tube: No ECG Monitoring: No Code Status: Full Code Bladder/Bowel Control: Independent Date of Last BM: 10/28/16 Uses Durable Medical Equipment: none Allergies: penicillins Isolation: no Wounds/Pressure Areas: none Diagnosis: cholelithiasis,splenomegally Completed Tests/Diagnostics: labs,HIDA scan Has patient been at the hospital 21 or No more days? Recommended Activity: Light Activity Bath Diet Comments: low fat diet Was patient education provided? Yes Were the problems, medications, and labs Yes reviewed? Potential Complications: Increase Temperature Pain Discharge Patient To: Home Patient Transportation: Private Auto Was a Patient Health Summary printed for Yes the pt? Was Important Message from Medicare Yes about Patients' Rights signed? 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 Emergency Discharge Date/Time: 10/25/16 13:22 Emergency Discharge Disposition: Acute Care w/in this hosp Clinical Impression Emergency Discharge Comment: Admit Intervention Last Done Inpatient Discharge Date/Time: 10/28/16 10:30 Inpatient Discharge Disposition: PT DISCHARGED HOME Inpatient Discharge Comment: Instructions: Cholelithiasis Discontinued Medications Alprazolam (Xanax) 0.5 mg PO DAILY SE[facility] PRN Reason: Protocol Stop: 12/25/16 08:59 Last Admin: 10/28/16 10:40 Dose: Not Given Hydromorphone HCl (Dilaudid) 1 mg IVP NOW STA Stop: 10/25/16 10:13 Last Admin: 10/25/16 10:17 Dose: 1 mg Sodium Chloride (Nacl 0.9%) 1,000 mls @ 100 mls/hr IV .Q10H ONE Stop: 10/25/16 18:42 Last Admin: 10/25/16 09:09 Dose: 100 mls/hr Levofloxacin (Levaquin Pb) 500 mg in 100 mls @ 100 mls/hr IV Q24HR SEEMA Stop: 12/25/16 16:59 Last Infusion: 10/27/16 17:30 Dose: Infused Metronidazole (Flagyl) 500 mg in 100 mls @ 100 mls/hr IV Q8HR SEEMA Stop: 12/25/16 20:59 Last Admin: 10/28/16 04:50 Dose: 100 mls/hr Ketorolac Tromethamine (Toradol) 60 mg IM NOW STA Stop: 10/25/16 07:50 Last Admin: 10/25/16 07:56 Dose: 60 mg Ondansetron HCl (Zofran) 4 mg IV NOW STA Stop: 10/25/16 10:14 Last Admin: 10/25/16 10:16 Dose: 4 mg Quetiapine Fumarate (Seroquel) 400 mg PO DAILY [facility] PRN Reason: Protocol Stop: 12/25/16 08:59 Last Admin: 10/28/16 10:34 Dose: Not Given Disposition: PT DISCHARGED HOME Home Medications: Home Medication Medication Instructions Recorded Type QUEtiapine Fumarate [SEROquel] 400 mg PO DAILY 10/25/16 History alprazOLAM [Xanax*] 0.5 mg PO DAILY 10/25/16 History Discharge Diet: Other (Low Fat diet) Consults and Follow-Up: [facility]Other] [facility]Other] [facility]Other] [facility]Other] not on staff,PCP is [Primary Care Provider] - Instructions: Cholelithiasis
== END 2016-10-28 10:30 | disposition home or self-care (01) ==
LOC: ER 07:28 → MSI 11:57
PROVIDERS: ADMIT Family Medicine; ATTEND Family Medicine
DX: K80.00 Calculus of gallbladder with acute cholecystitis without obstruction (principal); D61.818 Other pancytopenia; D69.6 Thrombocytopenia, unspecified; F15.90 Other stimulant use, unspecified, uncomplicated; K42.9 Umbilical hernia without obstruction or gangrene; F17.210 Nicotine dependence, cigarettes, uncomplicated; D75.9 Disease of blood and blood-forming organs, unspecified; D73.1 Hypersplenism; Z88.0 Allergy status to penicillin; Z79.899 Other long term (current) drug therapy
CPT/HCPCS: 36415-UA; 71010-TC; 78226-TC; 80053-TC; 80061-TC; 80307; 80320-TC; 81001-TC; 83036-90; 83605; 83690-TC; 84443-TC; 85007-TC; 85027-TC; 85610-TC; 85730-TC; 86592-TC; 90799; 93005; 96374; 96375; A9537; J1170; J1885; J1956; J2405; J7030; Q9967; Z7610